=== PATIENT | male | born 1945 | race Caucasian/White ===

== ENCOUNTER 2019-12-09 19:27 | Inpatient (IN) | payer MEDICARE ==
[~2019-12-09] VITALS: Ht 188 cm; Wt 137.3 kg
--- NOTE | 2019-12-09 21:22 | RAD ---
EXAM: CHEST AP ONLY INDICATION: Reason: chest pain / Spl. Instructions: / History: . TECHNIQUE: Single view COMPARISON: Chest x-ray 11/11/2006 FINDINGS: Redemonstrated is right chest multichamber pacemaker. Heart is enlarged. The great vessels appear unremarkable. There is no hilar or mediastinal mass. The lungs are hypoventilatory but show no focal infiltrates.. There is no pleural effusion or pneumothorax. There are no significant osseous abnormalities. IMPRESSION: Stable cardiomegaly with poorer inspiration. No acute focal infiltrates noted. Electronically signed by: Ken Mccarthy MD (12/09/2019 9:20 PM) [facility] [place]
--- NOTE | 2019-12-09 21:31 | PHYS DOC ---
Past Medical History Past Medical History: A-Fib Past Surgical History: Pacemaker, Other Smoking Status: Former Smoker Alcohol Use: None General Adult EDM: Chief Complaint: OTHER COMPLAINTS HPI: HPI: Patient is a 74 year old male who presents to the emergency department with complaints of swelling below both of his eyes and facial erythema that began today. Patient was brought by EMS. EMS reports that the patient also reported weakness and inability to ambulate. Patient denies any fever, numbness, tingling, weakness, or headache. He reports that his face is very red and hot to touch, he denies any drainage or weeping from the erythemic areas.. He denies any itching, new medications, new detergents, or new environmental exposures. Patient denies any vision changes. He reports a history of chronic pain in his left leg, he denies any recent injury. Patient reports his only medical history is atrial fibrillation and a pacemaker. He currently rates his pain 8 out of 10 on the pain scale, he denies any alleviating or exacerbating factors the pain does not radiate anywhere. Review of Systems: Review of Systems: Constitutional: Denies fever or chills. [] Eyes: Denies change in visual acuity; see HPI. [] HENT: Denies nasal congestion or sore throat. [] Respiratory: Denies cough or shortness of breath. [] Cardiovascular: Denies chest pain or edema. [] GI: Denies abdominal pain, nausea, vomiting, or diarrhea. [] Musculoskeletal: Denies back pain or joint pain. [] Integument: See HPI Neurologic: Denies headache, focal weakness or sensory changes. [] Lymphatic: Denies swollen glands. [] Psychiatric: Denies depression or anxiety. [] Heart Score: Risk Factors: Risk Factors: DM, Current or recent (<one month) smoker, HTN, HLP, family history of CAD, obesity. Risk Scores: Score 0 - 3: 2.5% MACE over next 6 weeks - Discharge Home Score 4 - 6: 20.3% MACE over next 6 weeks - Admit for Clinical Observation Score 7 - 10: 72.7% MACE over next 6 weeks - Early Invasive Strategies Allergies: Allergies: Allergies Coded Allergies Type Severity Reaction Last Updated Verified No Known Drug Allergies 12/09/19 No Physical Exam: PE: Constitutional: Well developed, well nourished, no acute distress, non-toxic appearance. [] HENT: Normocephalic, atraumatic, bilateral external ears normal, nose normal, bilateral maxillary sinus TTP [] Eyes: PERRLA, EOMI, conjunctiva normal, no discharge. [] Neck: Normal range of motion, no tenderness, supple, no stridor. [] Cardiovascular:Heart rate regularly irregular ,no murmur [] Lungs & Thorax: Bilateral breath sounds clear to auscultation, Respirations even and unlabored, no retractions, no respiratory distress [] Skin: Warm, dry; swelling present below both eyes with erythema and warmth below the right eye concerning for cellulitis vs sinusitis Back: No tenderness Extremities: No cyanosis, ROM intact, no edema. [] Neurologic: Alert and oriented X 3, no focal deficits noted. [] Psychologic: Affect normal, judgement normal, mood normal. [] Current Patient Data: Vital Signs: Vital Signs Date Time Temp Pulse Resp B/P (MAP) Pulse Ox O2 Delivery O2 Flow Rate FiO2 12/09/19 19:27 100.5 113 20 148/76 (100) 92 Room Air 100.5 EKG: EK-atrial fibrillation, rate of 101, no STEMI, read by Dr. Cormier [] Radiology/Procedures: Radiology/Procedures: PROCEDURE: CHEST AP ONLY EXAM: CHEST AP ONLY INDICATION: Reason: chest pain / Spl. Instructions: / History: . TECHNIQUE: Single view COMPARISON: Chest x-ray 11/11/2006 FINDINGS: Redemonstrated is right chest multichamber pacemaker. Heart is enlarged. The great vessels appear unremarkable. There is no hilar or mediastinal mass. The lungs are hypoventilatory but show no focal infiltrates.. There is no pleural effusion or pneumothorax. There are no significant osseous abnormalities. IMPRESSION: Stable cardiomegaly with poorer inspiration. No acute focal infiltrates noted. PROCEDURE: CT MAXILLOFACIAL WO CONTRAST CT scan of the face and orbits without contrast 12/09/2019 CLINICAL HISTORY: Periorbital cellulitis. TECHNIQUE: Unenhanced, contiguous, 0.625 mm axial sections were obtained through the face and orbits. 3 mm reconstructed sagittal, axial and coronal images were obtained. One or more of the following individualized dose reduction techniques were utilized for this study: 1. Automated exposure control. 2. Adjustment of the mA and/or kV according to patient size. 3. Use of iterative reconstruction technique. FINDINGS: The patient appears to be post partial resection of the medial ponce of both maxillary sinuses to include the uncinate processes along with resection of a portion of the ethmoid air cells bilaterally. Severe mucosal thickening is involving left maxillary sinus. Mild to moderate mucosal thickening is seen involving the remaining ethmoid air cells. The remaining paranasal sinuses are clear. No air-fluid level is seen. No facial bone fracture is noted. The orbits are within normal limits. Specifically the globes, extraocular muscles and optic nerve sheath complexes are within normal limits. No abnormal fluid collection is seen to suggest evidence of an abscess. IMPRESSION: Paranasal sinus disease disease as discussed above. No facial or orbital abscess is seen. [] Course & Med Decision Making: Course & Med Decision Making Pertinent Labs and Imaging studies reviewed. (See chart for details) [id number]- Spoke with Dr. Rushing and advised of patient in the ER, will admit for facial cellulitis. I advised Dr. Rushing that blood cultures x2 have been ordered and are pending, lactic acid was 2.1, BNP 4301, CXR normal, CT pending. I will consult infectious disease about antibiotics. Patient's vital signs stable. Patient now afebrile, appears ill, respirations even and unlabored. Patient will be admitted to the med/tele floor. Patient's case and plan of care also discussed with Dr. Cormier who is in agreement with DALTON Means Disclaimer: Clary Disclaimer: This electronic medical record was generated, in whole or in part, using a voice recognition dictation system. Departure Departure Impression: Primary Impression: Facial cellulitis Additional Impressions: Fever Weakness Sepsis Qualified Codes: A41.9 - Sepsis, unspecified organism Disposition: ADMITTED INPATIENT Admitting Physician: Tima Rushing Condition: STABLE Referrals: TIMA RUSHING MD (PCP) Justicifation of Admission Dx: Justifications for Admission: Justification of Admission Dx: Yes Sepsis: Infection RHONDA CASILLAS CONTINUOUS WAVE OPERATOR Dec 09, 2019 21:31
[2019-12-09 22:09] LABS: BASO % 0 % (0-3); EOS % 0 % (0-3); HEMATOCRIT 34.4 % (39.0-53.0); HEMOGLOBIN 10.9 g/dL (13.0-17.5); LYMPH # 0.5 x10^3/uL (1.0-4.8); LYMPH % 8 % (24-48); MEAN CORPUSCULAR HEMOGLOBIN 21 pg (25-35); MEAN CORPUSCULAR HGB CONC 32 g/dL (31-37); MEAN CORPUSCULAR VOLUME 67 fL (79-100); MONO # 0.3 x10^3/uL (0.0-1.1); MONO % 6 % (0-9); NEUT # 4.6 x10^3/uL (1.8-7.7); NEUT % 85 % (31-73); PLATELET COUNT 118 x10^3/uL (140-400); RED BLOOD COUNT 5.16 x10^6/uL (4.30-5.70); RED CELL DISTRIBUTION WIDTH 15.7 % (11.5-14.5); WHITE BLOOD COUNT 5.4 x10^3/uL (4.0-11.0)
[2019-12-09 22:10] LABS: BILIRUBIN,URINE NEGATIVE (NEG); CLARITY,URINE CLEAR; COLOR,URINE YELLOW; NITRITE,URINE NEGATIVE (NEG); PROTEIN,URINE NEGATIVE (NEG-TRACE)
[2019-12-09 22:17] LABS: CALCIUM 8.4 mg/dL (8.5-10.1); CREATININE 1.1 mg/dL (0.7-1.3); GFR 65.3; POTASSIUM 3.9 mmol/L (3.5-5.1)
[2019-12-09 22:21] LABS: PROTHROMBIN TIME PATIENT 35.6 SEC (11.7-14.0)
[2019-12-09 22:22] LABS: SQUAMOUS EPITHELIAL CELL,UR OCC /LPF
[2019-12-09 22:23] LABS: ALBUMIN 3.5 g/dL (3.4-5.0); ALBUMIN/GLOBULIN RATIO 1.2 (1.0-1.7); BACTERIA,URINE 0 /HPF (0-FEW); MAGNESIUM 1.9 mg/dL (1.8-2.4); TOTAL BILIRUBIN 2.3 mg/dL (0.2-1.0); TOTAL PROTEIN 6.4 g/dL (6.4-8.2)
[2019-12-09] MEDS ORDERED: ACETAMINOPHEN 500 MG TABLET PO ONE (22:45)
--- NOTE | 2019-12-09 23:23 | RAD ---
CT scan of the face and orbits without contrast 12/09/2019 CLINICAL HISTORY: Periorbital cellulitis. TECHNIQUE: Unenhanced, contiguous, 0.625 mm axial sections were obtained through the face and orbits. 3 mm reconstructed sagittal, axial and coronal images were obtained. One or more of the following individualized dose reduction techniques were utilized for this study: 1. Automated exposure control. 2. Adjustment of the mA and/or kV according to patient size. 3. Use of iterative reconstruction technique. FINDINGS: The patient appears to be post partial resection of the medial ponce of both maxillary sinuses to include the uncinate processes along with resection of a portion of the ethmoid air cells bilaterally. Severe mucosal thickening is involving left maxillary sinus. Mild to moderate mucosal thickening is seen involving the remaining ethmoid air cells. The remaining paranasal sinuses are clear. No air-fluid level is seen. No facial bone fracture is noted. The orbits are within normal limits. Specifically the globes, extraocular muscles and optic nerve sheath complexes are within normal limits. No abnormal fluid collection is seen to suggest evidence of an abscess. IMPRESSION: Paranasal sinus disease disease as discussed above. No facial or orbital abscess is seen. Electronically signed by: Benji Carlton MD (12/09/2019 11:20 PM) [id number]
[2019-12-09 23:25] LABS: HYPOCHROMIA MOD; MICROCYTOSIS MARKED; PLT ESTIMATE DECREASED (ADEQUATE); POLYCHROMASIA SLIGHT
[2019-12-09 23:26] LABS: TEAR DROP CELLS OCC
[2019-12-09] MEDS ORDERED: VANCOMYCIN 2 GM in IV NORMAL SALINE 500ML BAG 500 ML IV ONE (23:30)
[2019-12-09] MEDS ORDERED: IV NORMAL SALINE 500ML BAG 500 ML IV ONE (23:30)
[2019-12-10] VITALS (7 sets, daily range): BP systolic 95–123; BP diastolic 41–58
[2019-12-10] MEDS ORDERED: IV NORMAL SALINE 1000ML BAG 1,000 ML IV SCH (00:15)
[2019-12-10] MEDS: VANCOMYCIN PER PHARMACY MC PRN ×2 (02:10→02:14)
--- NOTE | 2019-12-10 02:14 | NUR ---
Pharmacy Vancomycin Dosing Note S:Consulted to monitor and dose vancomycin started 12/10/19. O:IRON CANNON is a 74 year old M with Cellulitis Sepsis . Height: 6 feet, 2 inches Weight: 136.3 kg [place] Body Weight: 82.20 Adjusted Body Weight: 103.72 Dosing Weight: Actual Other Antibiotics: LABS: Last BUN: 15 Last Creatinine: 1.1 Creatinine Clearance: 85 mL/min Last WBC: 5.4 Last Procalcitonin: Tmax (past 24 hours): Microbiology: I/O: Drug Levels: Last level: on at Last dose given at Vancomycin Dosing: Loading Dose: 2000 mg x1 12/10/19 0100 Dosing Weight: Actual Target Trough: 10-20 A: Based on: Actual Wt and CrCl P: 1. 12/10/19 1300 Vancomycin 2000 mg IV q12h 2. Follow up Trough level on 12/11/19 at 1230 3. Pharmacy will continue to monitor, follow and adjust therapy as needed. TEJAL ARANA RPH, 12/10/19214 Signed: 12/10/19 at 214 by TEJAL ARANA RPH PHA
[2019-12-10] MEDS ORDERED: WARF4TAB64 PO (02:33)
[2019-12-10] MEDS ORDERED: FINA5TAB4 PO (02:33)
[2019-12-10] MEDS ORDERED: METO100T7 PO (02:33)
[2019-12-10] MEDS ORDERED: DOXA2TAB2 PO (02:33)
[2019-12-10] MEDS ORDERED: DIGO125T3 PO (02:33)
[2019-12-10] MEDS ORDERED: GARL10002 PO (02:36)
[2019-12-10] MEDS ORDERED: UBID200C7 PO (02:36)
[2019-12-10] MEDS ORDERED: OMEG1CAP38 PO (02:36)
--- NOTE | 2019-12-10 09:04 | PDOC ---
Infectious Disease Note Vital Sign Vital Signs Vital Signs Date Time Temp Pulse Resp B/P (MAP) Pulse Ox O2 Delivery O2 Flow Rate FiO2 12/10/19 07:00 107/56 (73) 12/10/19 07:00 97.5 87 18 97 Nasal Cannula 2.0 97.5 Labs Lab Laboratory Tests Test 12/09/19 21:35 12/10/19 01:30 White Blood Count 5.4 x10^3/uL (4.0-11.0) Red Blood Count 5.16 x10^6/uL (4.30-5.70) Hemoglobin 10.9 g/dL (13.0-17.5) Hematocrit 34.4 % (39.0-53.0) Mean Corpuscular Volume 67 fL (79-100) Mean Corpuscular Hemoglobin 21 pg (25-35) Mean Corpuscular Hemoglobin Concent 32 g/dL (31-37) Red Cell Distribution Width 15.7 % (11.5-14.5) Platelet Count 118 x10^3/uL (140-400) Neutrophils (%) (Auto) 85 % (31-73) Lymphocytes (%) (Auto) 8 % (24-48) Monocytes (%) (Auto) 6 % (0-9) Eosinophils (%) (Auto) 0 % (0-3) Basophils (%) (Auto) 0 % (0-3) Neutrophils # (Auto) 4.6 x10^3/uL (1.8-7.7) Lymphocytes # (Auto) 0.5 x10^3/uL (1.0-4.8) Monocytes # (Auto) 0.3 x10^3/uL (0.0-1.1) Eosinophils # (Auto) 0.0 x10^3/uL (0.0-0.7) Basophils # (Auto) 0.0 x10^3/uL (0.0-0.2) Platelet Estimate Decreased (ADEQUATE) Giant Platelets Occ Polychromasia Slight Hypochromasia Mod Microcytosis Marked Tear Drop Cells Occ Prothrombin Time 35.6 SEC (11.7-14.0) Prothromb Time International Ratio 3.5 (0.8-1.1) Activated Partial Thromboplast Time 62 SEC (24-38) Urine Collection Type Unknown Urine Color Yellow Urine Clarity Clear Urine pH 7.0 (<5.0-8.0) Urine Specific [place] 1.015 (1.000-1.030) Urine Protein Negative mg/dL (NEG-TRACE) Urine Glucose (UA) Negative mg/dL (NEG) Urine Ketones (Stick) Negative mg/dL (NEG) Urine Blood Negative (NEG) Urine Nitrite Negative (NEG) Urine Bilirubin Negative (NEG) Urine Urobilinogen Dipstick 1.0 mg/dL (0.2 mg/dL) Urine Leukocyte Esterase Small (NEG) Urine RBC 3-5 /HPF (0-2) Urine WBC 11-20 /HPF (0-4) Urine Squamous Epithelial Cells Occ /LPF Urine Bacteria 0 /HPF (0-FEW) Urine Mucus Marked /LPF Sodium Level 138 mmol/L (136-145) Potassium Level 3.9 mmol/L (3.5-5.1) Chloride Level 105 mmol/L (98-107) Carbon Dioxide Level 29 mmol/L (21-32) Anion Gap 4 (6-14) Blood Urea Nitrogen 15 mg/dL (8-26) Creatinine 1.1 mg/dL (0.7-1.3) Estimated GFR (Cockcroft-Gault) 65.3 BUN/Creatinine Ratio 14 (6-20) Glucose Level 134 mg/dL (70-99) Lactic Acid Level 2.1 mmol/L (0.4-2.0) 1.7 mmol/L (0.4-2.0) Calcium Level 8.4 mg/dL (8.5-10.1) Magnesium Level 1.9 mg/dL (1.8-2.4) Total Bilirubin 2.3 mg/dL (0.2-1.0) Aspartate Amino Transf (AST/SGOT) 18 U/L (15-37) Alanine Aminotransferase (ALT/SGPT) 15 U/L (16-63) Alkaline Phosphatase 70 U/L (46-116) Creatine Kinase 100 U/L (39-308) Creatine Kinase MB (Mass) 0.9 ng/mL (0.0-3.6) Creatine Kinase MB Relative Index 0.9 % (0-4) Troponin I Quantitative < 0.017 ng/mL (0.000-0.055) QF-Hrn-[id number]-Type Natriuretic Peptide 4301 pg/mL (0-449) Total Protein 6.4 g/dL (6.4-8.2) Albumin 3.5 g/dL (3.4-5.0) Albumin/Globulin Ratio 1.2 (1.0-1.7) Lipase 96 U/L (73-393) Micro CT HEAD IMPRESSION: Paranasal sinus disease disease as discussed above. No facial or orbital abscess is seen. Objective Assessment Fever Facial Cellulitis Lactic acidosis - better Thrombocytopenia Afib Elevated T bili Plan Plan of Care D/c Vanc and dose po Zyvox Dose Rocephin F/u lab and cults T Bili per primary Thank you # [phone] MARYANN HITCHCOCK MD Dec 10, 2019 09:04
--- NOTE | 2019-12-10 09:31 | EKG ---
[facility] [address] [place] [address] Test Date: 2019-12-09 Test Time: 20:11:51 Pat Name: IRON CANNON Department: Room: Gender: M Residential Program Director: : 1945 Requested By: RHONDA CASILLAS Order Number: [id number] Reading MD: Measurements Intervals [place] Rate: 101 P: [place]: QRS: 9 QRSD: 88 T: -5 QT: 294 QTc: 382 Interpretive Statements IRREGULAR RHYTHM, NO P-WAVE FOUND NO SPECIFIC ECG ABNORMALITIES RI6.02 No previous ECG available for comparison
[2019-12-10] MEDS ORDERED: FINASTERIDE 5 MG TABLET. PO SCH (10:00)
[2019-12-10] MEDS ORDERED: METOPROLOL TART IMMED RELEASE 50 MG TABLET. PO SCH (10:00)
[2019-12-10] MEDS ORDERED: METOPROLOL TART IMMED RELEASE 25 MG TABLET. PO SCH (10:00)
[2019-12-10] MEDS ORDERED: DIGOXIN 125 MCG TABLET. PO SCH (10:00)
--- NOTE | 2019-12-10 10:02 | PDOC ---
Provider Note Provider Note history and physical dictated # [id number] Justicifation of Admission Dx: Justifications for Admission: Justification of Admission Dx: Yes Sepsis: Infection SANDRA GARDINER MD Dec 10, 2019 10:02
[2019-12-10] MEDS: OMEGA-3 FATTY ACIDS/FISH OIL 1,000 MG CAPSULE. PO SCH (10:17)
[2019-12-10] MEDS: cefTRIAXone IV Push 2 GM VIAL. IVP SCH (10:17)
[2019-12-10] MEDS: LINEZOLID 600 MG TABLET PO SCH ×2 (10:17→20:27)
[2019-12-10] MEDS: FINASTERIDE 5 MG TABLET. PO SCH (10:18)
[2019-12-10] MEDS: DIGOXIN 125 MCG TABLET. PO SCH (10:18)
[2019-12-10] MEDS: DOXAZOSIN MESYLATE 1 MG TABLET. PO SCH (10:18)
[2019-12-10 10:19] LABS: PROTHROMBIN TIME PATIENT 34.8 SEC (11.7-14.0)
--- NOTE | 2019-12-10 10:59 | PDOC2 ---
MAINE THOMPSON MOLD MAINTENANCE TECHNICIAN 12/10/19 1059: CARDIAC CONSULT DATE OF CONSULT Date of Consult DATE: 12/10/19 TIME: 10:48 REASON FOR CONSULT Reason for Consult: AFIB, elevated BNP REFERRING PHYSICIAN Referring Physician: Сергей SOURCE Source: Chart review, Patient HISTORY OF PRESENT ILLNESS HISTORY OF PRESENT ILLNESS This is a pleasant 74 yo male admitted for complains of facial swelling. Reports that in the last 2 days he has not been feeling well and then his face started to become more swollen and red to a point that he could open his eyes well due to the swelling. No fever or chills at that time but was noted with dry heaving. No odynophagia. Denies any falls or any injury. Denies any teeth problem but significant for sinus surgery in the past. He does have KATE and uses facial mask for CPAP and has not been cleaning it. Denies any chest pain or SOA. He has AFIB and this is chronic and sees Dr. 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 Upon admission his HR was fast but was associated with fever. He takes coumadin, digoxin and metoprolol. Denies any CAD, angioedema or VTE. No hx of CVA PAST MEDICAL HISTORY Cardiovascular: AFIB, HTN, Other (SSS) Pulmonary: COPD, Other (KATE) CENTRAL NERVOUS SYSTEM: Other (No pertinent history) GI: GERD Heme/Onc: Anemia NOS, Other (chronic coumadin) Hepatobiliary: No pertinent hx Psych: No pertinent hx Musculoskeletal: Osteoarthritis Infectious disease: No pertinent hx ENT: Other (cataract) Renal/: Benign prostatic enlarg. Endocrine: No pertinent hx Dermatology: No pertinent hx PAST SURGICAL HISTORY Past Surgical History: Pacemaker, Cataract Removal FAMILY HISTORY Family History: Stroke SOCIAL HISTORY Smoke: Quit ALCOHOL: none Drugs: None Lives: with Family CURRENT MEDICATIONS CURRENT MEDICATIONS Current Medications Medications (Trade) Dose Ordered Sig/Jorje Route PRN Reason Start Time Stop Time Status Last Admin Dose Admin Acetaminophen (Tylenol) 1,000 mg 1X ONCE PO 12/09/19 22:45 12/09/19 22:46 DC 12/09/19 23:06 Vancomycin HCl (Vanco Per Pharmacy) 1 each PRN DAILY PRN MC SEE COMMENTS 12/09/19 23:30 12/10/19 08:56 DC 12/10/19 02:14 Sodium Chloride 500 ml @ 500 mls/hr 1X ONCE IV 12/09/19 23:30 12/10/19 00:29 DC 12/09/19 23:30 Vancomycin HCl 2 gm/Sodium Chloride 500 ml @ 250 mls/hr 1X ONCE IV 12/09/19 23:30 12/10/19 01:29 DC 12/10/19 01:05 Sodium Chloride 1,000 ml @ 100 mls/hr Q10H IV 12/10/19 00:15 12/10/19 09:46 DC 12/10/19 06:37 Linezolid (Zyvox) 600 mg BID PO 12/10/19 09:00 12/10/19 10:17 Ceftriaxone Sodium (Rocephin) 2 gm Q24H IVP 12/10/19 10:00 12/10/19 10:17 Digoxin (Lanoxin) 125 mcg DAILY PO 12/10/19 10:00 12/10/19 10:18 Doxazosin Mesylate (Cardura) 2 mg DAILY PO 12/10/19 10:00 12/10/19 10:18 Finasteride (Proscar) 5 mg DAILY PO 12/10/19 10:00 12/10/19 10:18 Fish Oil (Fish Oil) 1,000 mg DAILY PO 12/10/19 10:00 12/10/19 10:17 Metoprolol Tartrate (Lopressor) 100 mg BID PO 12/10/19 10:00 12/10/19 10:18 ALLERGIES ALLERGIES: Coded Allergies: No Known Drug Allergies (Unverified , 12/09/19) ROS Review of System 14 point ROS evaluated with pertinent positives noted per HPI PHYSICAL EXAM General: Alert, Oriented X3, Cooperative, No acute distress HEENT: Atraumatic, Other (facial cellulitis) Lungs: Other (diminished bases) Heart: Other (AFIB ) Abdomen: Soft, Other (obese) Extremities: No cyanosis, No edema Skin: No breakdown, Other (facial erythema) Neuro: Normal speech, Sensation intact Psych/Mental Status: Mental status NL, Mood NL MUSCULOSKELETAL: Osteoarthritic changes both hands VITALS/I&O VITALS/I&O: Vital Signs Date Time Temp Pulse Resp B/P (MAP) Pulse Ox O2 Delivery O2 Flow Rate FiO2 12/10/19 10:18 87 107/56 12/10/19 08:00 Nasal Cannula 2.0 12/10/19 07:00 97.5 18 97 97.5 I & O 12/09/19 12/09/19 12/10/19 15:00 23:00 07:00 Intake Total 850 ml Output Total 200 ml Balance 650 ml LABS Lab: Laboratory Tests Test 12/09/19 21:35 12/10/19 01:30 12/10/19 08:50 White Blood Count 5.4 x10^3/uL (4.0-11.0) Red Blood Count 5.16 x10^6/uL (4.30-5.70) Hemoglobin 10.9 g/dL (13.0-17.5) L Hematocrit 34.4 % (39.0-53.0) L Mean Corpuscular Volume 67 fL (79-100) L Mean Corpuscular Hemoglobin 21 pg (25-35) L Mean Corpuscular Hemoglobin Concent 32 g/dL (31-37) Red Cell Distribution Width 15.7 % (11.5-14.5) H Platelet Count 118 x10^3/uL (140-400) L Neutrophils (%) (Auto) 85 % (31-73) H Lymphocytes (%) (Auto) 8 % (24-48) L Monocytes (%) (Auto) 6 % (0-9) Eosinophils (%) (Auto) 0 % (0-3) Basophils (%) (Auto) 0 % (0-3) Neutrophils # (Auto) 4.6 x10^3/uL (1.8-7.7) Lymphocytes # (Auto) 0.5 x10^3/uL (1.0-4.8) L Monocytes # (Auto) 0.3 x10^3/uL (0.0-1.1) Eosinophils # (Auto) 0.0 x10^3/uL (0.0-0.7) Basophils # (Auto) 0.0 x10^3/uL (0.0-0.2) Platelet Estimate Decreased (ADEQUATE) Giant Platelets Occ Polychromasia Slight Hypochromasia Mod Microcytosis Marked Tear Drop Cells Occ Prothrombin Time 35.6 SEC (11.7-14.0) H 34.8 SEC (11.7-14.0) H Prothrombin Time INR 3.5 (0.8-1.1) H 3.4 (0.8-1.1) H Activated Partial Thromboplast Time 62 SEC (24-38) H Urine Collection Type Unknown Urine Color Yellow Urine Clarity Clear Urine pH 7.0 (<5.0-8.0) Urine Specific [place] 1.015 (1.000-1.030) Urine Protein Negative mg/dL (NEG-TRACE) Urine Glucose (UA) Negative mg/dL (NEG) Urine Ketones (Stick) Negative mg/dL (NEG) Urine Blood Negative (NEG) Urine Nitrite Negative (NEG) Urine Bilirubin Negative (NEG) Urine Urobilinogen Dipstick 1.0 mg/dL (0.2 mg/dL) Urine Leukocyte Esterase Small (NEG) Urine RBC 3-5 /HPF (0-2) Urine WBC 11-20 /HPF (0-4) Urine Squamous Epithelial Cells Occ /LPF Urine Bacteria 0 /HPF (0-FEW) Urine Mucus Marked /LPF Sodium Level 138 mmol/L (136-145) Potassium Level 3.9 mmol/L (3.5-5.1) Chloride Level 105 mmol/L (98-107) Carbon Dioxide Level 29 mmol/L (21-32) Anion Gap 4 (6-14) L Blood Urea Nitrogen 15 mg/dL (8-26) Creatinine 1.1 mg/dL (0.7-1.3) Estimated GFR (Cockcroft-Gault) 65.3 BUN/Creatinine Ratio 14 (6-20) Glucose Level 134 mg/dL (70-99) H Lactic Acid Level 2.1 mmol/L (0.4-2.0) H 1.7 mmol/L (0.4-2.0) 1.3 mmol/L (0.4-2.0) Calcium Level 8.4 mg/dL (8.5-10.1) L Magnesium Level 1.9 mg/dL (1.8-2.4) Total Bilirubin 2.3 mg/dL (0.2-1.0) H Aspartate Amino Transferase (AST) 18 U/L (15-37) Alanine Aminotransferase (ALT) 15 U/L (16-63) L Alkaline Phosphatase 70 U/L (46-116) Creatine Kinase 100 U/L (39-308) Creatine Kinase MB (Mass) 0.9 ng/mL (0.0-3.6) Creatine Kinase MB Relative Index 0.9 % (0-4) Troponin I Quantitative < 0.017 ng/mL (0.000-0.055) IU-Usj-G-Type Natriuretic Peptide 4301 pg/mL (0-449) H Total Protein 6.4 g/dL (6.4-8.2) Albumin 3.5 g/dL (3.4-5.0) Albumin/Globulin Ratio 1.2 (1.0-1.7) Lipase 96 U/L (73-393) Laboratory Tests 12/09/19 21:35 Laboratory Tests 12/09/19 21:35 ASSESSMENT/PLAN ASSESSMENT/PLAN 1. Sepsis/fever/facial cellulitis/possible UTI: ID following Has not been cleaning his CPAP mask 2. Chronic AFIB RVR: chronic vs paroxysms. now rate controlled. likely precipitated by above 3. Elevated pro NT BNP: suspect due to above culprits. No overt CHF 4. HTN: low marginal but controlled 5. Mild microcytic hypochromic anemia and thrombocytopenia 6. Chronic coumadin therapy: INR therapeutic 7. Obesity 8. PPM in situ: dual chamber but only RV lead is operational as A lead is off per pt. 9. 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 Dig level. Will decrease metoprolol dosing as BP is currently marginally low. Metoprolol IV PRN for sustained episodes if BP allows. Follow up with [facility] cardiology GRISEL GUILLEN MD 12/10/19 1617: CARDIAC CONSULT ASSESSMENT/PLAN ASSESSMENT/PLAN Pt. seen and examined. Agree with above ATMOSPHERIC PHYSICIST note Supportive care. Thanks MAINE THOMPSON MOLD MAINTENANCE TECHNICIAN Dec 10, 2019 10:59 GRISEL GUILLEN MD Dec 10, 2019 16:17
--- NOTE | 2019-12-10 11:06 | HP ---
ADMIT DATE: 12/09/2019 LOCATION: The patient is in room 207. HISTORY OF PRESENT ILLNESS: The patient is a 74-year-old white male with history of persistent atrial fibrillation, on Coumadin; obstructive sleep apnea, treated with CPAP; morbid obesity; thalassemia trait with chronic anemia, who has a permanent pacemaker and noted the onset of facial redness and swelling, right side of the face and left side of the face Friday the morning when he woke up. He does wear CPAP at night and has been wearing the same CPAP mask now for a quite some time. He felt that his face was red and warm to touch and there was no itching. He also complains of some sciatic pain this morning involving the left leg. Apparently, he had some problems with mobility and inability to ambulate at home. He had a fever too and chills yesterday. He went to the [facility] Emergency Room where he was noted to have a facial cellulitis. A CAT scan of the maxillofacial bones showed some evidence of chronic sinusitis and the patient was started on IV vancomycin in the Emergency Room and Rocephin, and was switched to Rocephin and Zyvox by the Infectious Disease doctor this morning. I spoke with Dr. Dickens. He is therefore admitted for further evaluation and treatment of his facial cellulitis. ALLERGIES: None. MEDICATIONS: Include digoxin 125 mcg daily, doxazosin 2 mg every day, finasteride 5 mg every day, garlic 1000 mg capsule daily, metoprolol tartrate 100 mg b.i.d., fish oil 1 g daily, coenzyme Q10 200 mg b.i.d., and Coumadin 4.5 mg every day. PAST MEDICAL HISTORY: Significant for bilateral cataract extraction last year. He has a permanent pacemaker, some generator changes in the past. He has thalassemia trait with chronic anemia; morbid obesity; persistent atrial fibrillation, on Coumadin; obstructive sleep apnea, treated with CPAP. SOCIAL HISTORY: He does not drink alcohol nor does he smoke cigarettes. He is . FAMILY HISTORY: Noncontributory. REVIEW OF SYSTEMS: GENERAL: He had fever and chills yesterday. CARDIOVASCULAR: No chest pain. PULMONARY: He has got a chronic cough. GASTROINTESTINAL: No diarrhea. ENDOCRINE: He does not have diabetes mellitus. SKIN: He has got the facial cellulitis. The rest of systems reviewed are negative except as stated in history of present illness. PHYSICAL EXAMINATION: VITAL SIGNS: Temperature is 97.5 degrees, heart rate 87, respiratory rate 18, blood pressure 95/50 and then rechecked at 107/56 in the right arm, oxygen saturation 97% and he is on 2 liters per nasal cannula. His temperature in the Emergency Room was 100.5 degrees. HEENT: Eyes: Gaze is conjugate. He has got some eyelid swelling. Examination of face shows he has got erythema and swelling in both cheeks, worse on the right than the left. The area is warm more on the right than the left. He does have some swelling in his face too, worse on the right than the left. NECK: No cervical lymphadenopathy. HEART: Reveals an S1, S2. There is no S3 or murmur. LUNGS: Clear. ABDOMEN: Obese and soft, nontender. EXTREMITIES: Lower extremities without edema. Pedal pulses are present. NEUROLOGIC: Revealed no focal weakness of the extremities or facial asymmetry. He is able to dorsi and plantarflex both feet, bend his knees and raise his legs up in the air. LABORATORY DATA: Review of his laboratory tests: White count is 5.4, hemoglobin 10.9 with MCV of 67. His RBCs were normal at 5.16, platelet count was 118,000, 85 polys and 8 lymphocytes. He had marked microcytosis. INR was increased at 3.5. His sodium is 138, potassium 3.9, chloride 105, total CO2 of 29, BUN 15, creatinine 1.1, blood sugar 134 last night and magnesium was 1.9, calcium was 8.4. Liver function tests were normal except for a total bilirubin of 2.3. His lactic acid level was 2.1 and then checked again was 1.7. His CPK was 100. Troponin levels less than 0.017. ProBNP was increased at 4301. Lipase was normal at 96, albumin 3.5, bilirubin 2.3. Then, he had a CAT scan of the maxillofacial bones, which showed paranasal sinus disease, no facial or orbital abscess was seen. He had [id number] mucosal thickening involving the ethmoid air cells. He had severe mucosal thickening involving the left maxillary sinus. He had a chest x-ray, which showed stable cardiomegaly with poor inspiration, no lung infiltrates were seen, great vessels were unremarkable. EKG showed atrial fibrillation. ASSESSMENT: 1. Facial cellulitis, perhaps related to his mask from his CPAP. 2. Persistent atrial fibrillation. He is on Coumadin. 3. Coagulopathy. 4. Obstructive sleep apnea, treated with CPAP. 5. Morbid obesity. 6. Thalassemia trait with chronic anemia. 7. Elevated BNP. 8. Sepsis related to the facial cellulitis since he had a fever earlier. 9. Permanent pacemaker. PLAN: At this time is to consult Dr. Dickens who has already seen the patient. Consult Dr. Membreno for Cardiology. Obtain an echocardiogram with elevated BNP and atrial fibrillation. We will get a protime and INR today and I spoke with the nurse if INR is 3 or less he is to start Coumadin 4 mg daily, which is lower than what he takes at home. Check another protime and INR tomorrow. His elevated bilirubin could be related to his thalassemia trait, so we will get a direct bilirubin and total bilirubin tomorrow and check his liver function tests again. Get a CBC and BMP tomorrow. Continue with his home medications. His will bring the BiPAP from home. I can look at that facemask. He may need to have another face mask if it is too tight. We will continue with the IV Rocephin and Zyvox. Consult Dr. Membreno for the atrial fibrillation and elevated BNP. Continue with his home medications. We will check a digoxin level tomorrow. He also had blood cultures done in the Emergency Room as well as a urine culture. He did have a urinalysis done and he did have some pyuria, 11-20 white cells, 3-5 red blood cells noted on the urinalysis. SANDRA GARDINER MD DR: GRICEL/stefano JOB#: [id number] / [id number]
--- NOTE | 2019-12-10 11:16 | NUR ---
SS following for discharge planning. SS reviewed pt chart and discussed with pt RN. Pt is from home with spouse and is currently requiring oxygen. Pt has no home oxygen. ID and Cardiology consulted. ECHO ordered. Pt on IV Rocephin and PO Zyvox. SS will continue to follow for discharge planning.
--- NOTE | 2019-12-10 11:20 | CONS ---
DATE OF CONSULTATION: 12/10/2019 INFECTIOUS DISEASE CONSULTATION LOCATION: The patient's room is 207. REQUESTING PHYSICIAN: Dr. Rushing. REASON FOR CONSULTATION: Facial cellulitis. HISTORY OF PRESENT ILLNESS: The patient is a 74-year-old gentleman with a history of atrial fibrillation and with pacemaker, who has been pretty much quarantined himself at home since the outbreak of the COVID. 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 He did do some little bit of work in the yard, but denies any known exposure to anything. On Friday, he awakened and had some mild erythema and swelling about his eyes. He also had some increased sinus congestion and drainage. Over the course of the day, it worsened and then yesterday when he awakened, he says eyes were almost swollen and shut. His face became more red and hot. It has not affected his vision. He does not hurt to move his eyes. He has not changed any soaps or medications and denies any known exposures. He did start to have increased drainage, some fevers and chills and sweats. He has not had any swallowing problems or wheezing. No shortness of air. No nausea, vomiting or diarrhea. He is a little bit constipated. Denies any dysuria, frequency or urgency. He presented yesterday to [facility] because of weakness. He did have a temperature of 100.5. White count was 5.4; however, neutrophils were 85%. Urinalysis was collected, but not consistent with urinary tract infection. Chest x-ray was without acute process. CT scan of the face showed paranasal sinus disease, no facial or orbital abscess was seen. He was placed on vancomycin. Currently, he is lying in bed, states he is feeling some better. PAST MEDICAL HISTORY: Positive for sinusitis, history of atrial fibrillation, obesity, cataracts. He denies any history of any pneumoniae, no skin infections or UTIs. PAST SURGICAL HISTORY: Positive for sinus surgery x 2, cataract surgery, pacemaker placement x 4. REVIEW OF SYSTEMS: Otherwise negative except for mentioned above. ALLERGIES: No known drug allergies. SOCIAL HISTORY: He is , is a former smoker, quit in 1993. He has no pets. FAMILY HISTORY: Mother had breast cancer. CURRENT MEDICATIONS: Include vancomycin and p.r.n. meds. PHYSICAL EXAMINATION: VITAL SIGNS: T-max 100.5, currently 97.5, pulse 87, respirations 18, blood pressure 107/53, satting 97% on 2 liters. CONSTITUTIONAL: He is lying in bed. He is cooperative. He is in no acute distress. HEENT: Pupils are equal and reactive. He has normal conjunctivae. He does have some facial swelling above his eyes and around his eyes and over the bridge of his nose. He has some mild erythema associated with it and some mild tenderness to palpation. Oral cavity: Oropharynx has dentures, otherwise clear. NECK: Supple, no JVD. LUNGS: Clear to auscultation. HEART: S1, S2. Pacemaker scars without complications. ABDOMEN: Obese, soft, nontender, nondistended with positive bowel sounds. EXTREMITIES: No clubbing, cyanosis or gross edema. SKIN: Warm to touch without generalized rash. NEUROLOGIC: He is nonfocal. PSYCHIATRIC: Affect is appropriate. LABORATORY VALUES: White count of 5.4, hemoglobin 10.9, platelets of 118, neutrophils are 85, lymphs are 8; creatinine was 1.1, glucose of 134; lactic acid initially 2.1, improved to 1.7; total bilirubin was 2.3. IMPRESSION: 1. Fever. 2. Facial cellulitis. 3. Lactic acidosis, better. 4. Thrombocytopenia. 5. Atrial fibrillation. 6. Elevated total bilirubin. RECOMMENDATIONS: We will discontinue the vancomycin and dose p.o. Zyvox. We will also dose Rocephin. Follow up on labs and cultures. Total bilirubin per primary. Thank you to participate in the patient's care. Should you have any questions, please do not hesitate to contact me. MARYANN HITCHCOCK MD DR: INÉS/stefano JOB#: [id number] / [id number]
[2019-12-10 12:06] LABS: DIG 0.3 ng/mL (0.9-2.0)
[2019-12-10] MEDS ORDERED: VANCOMYCIN 2 GM in IV NORMAL SALINE 500ML BAG 500 ML IV SCH (13:00)
[2019-12-10] MEDS ORDERED: METOPROLOL TARTRATE 5 MG/5 ML VIAL. IVP PRN (14:15)
--- NOTE | 2019-12-10 16:50 | CARD ---
MR#: [id number] Date of Study: 12/10/2019 Ordering Physician: SANDRA GARDINER, Referring Physician: SANDRA GARDINER Tech: Melita Banerjee RDCS APPROVED REPORT EXAM: Two-dimensional and M-mode echocardiogram with Doppler and color Doppler. Other Information Quality : Good Rhythm : Atrial Fibrillation INDICATION Atrial Fibrillation Surgery/Intervention Pacemaker: Date: 1996 2D DIMENSIONS RVDd3.9 (2.9-3.5cm)Left Atrium(2D)5.5 (1.6-4.0cm) IVSd1.0 (0.7-1.1cm)Aortic Root(2D)3.3 (2.0-3.7cm) LVDd5.2 (3.9-5.9cm)LVOT Diameter2.4 (1.8-2.4cm) PWd1.1 (0.7-1.1cm)LVDs3.3 (2.5-4.0cm) FS (%) 36.1 %SV85.0 ml LVEF(%)60.0 (>50%) Aortic Valve AoV Peak Murali.161.6cm/sAoV VTI26.9cm AO Peak GR.10.4mmHgLVOT VTI 12.34cm AO Mean GR.6mmHgAVA (VTI)2.00cm2 Mitral Valve MV E Spwrkmbe39.3cm/sMV DECEL [id number] Tricuspid Valve TR P. [id number]/sRAP [id number] TR Peak Gr.76whCiAIZB26jiUj LEFT VENTRICLE The left ventricle is normal size. There is normal left ventricular wall thickness. The left ventricu lar systolic function is normal and the ejection fraction is within normal range. The Ejection Fracti on is 55-60%. There is normal LV segmental wall motion. RIGHT VENTRICLE The right ventricle is normal size. The right ventricular systolic function is normal. There is a pro bable pacemaker lead in the right ventricle. ATRIA The left atrium is mildly dilated. The right atrium is mildly dilated. A pacemaker is seen in the rig ht atrium consistent with history. The interatrial septum is intact with no evidence for an atrial se ptal defect or patent foramen ovale as noted on 2-D or Doppler imaging. AORTIC VALVE The aortic valve is calcified but opens well. Doppler and Color Flow revealed no significant aortic r egurgitation. There is no significant aortic valvular stenosis. MITRAL VALVE The mitral valve is calcified but opens well. Mitral annular calcification is mild. There is no evide nce of mitral valve prolapse. There is no mitral valve stenosis. Doppler and Color-flow revealed trac e mitral regurgitation. TRICUSPID VALVE The tricuspid valve is normal in structure and function. Doppler and Color Flow revealed trace tricus pid regurgitation. The PA pressure was estimated at 33 mmHg. There is no tricuspid valve stenosis. PULMONIC VALVE The pulmonic valve is not well visualized. Doppler and Color Flow revealed no pulmonic valvular regur gitation. There is no pulmonic valvular stenosis. GREAT VESSELS The aortic root is normal in size. The ascending aorta is moderately dilated at 4.1 cm. The IVC is no rmal in size and collapses >50% with inspiration. PERICARDIAL EFFUSION There is no evidence of significant pericardial effusion. Critical Notification Critical Value: No <Conclusion> The left ventricle is normal size. The left ventricular systolic function is normal and the ejection fraction is within normal range. The Ejection Fraction is 55-60%. There are probable pacemaker leads in the right ventricle and atrium. Doppler and Color Flow revealed no significant aortic regurgitation. There is no significant aortic valvular stenosis. Doppler and Color-flow revealed trace mitral regurgitation. Doppler and Color Flow revealed trace tricuspid regurgitation. The PA pressure was estimated at 33 mmHg. The ascending aorta is moderately dilated at 4.1 cm. Signed by : Stephen Taylor MD Electronically Approved : 12/10/2019 16:49:53
[2019-12-10] MEDS: LACTOBACILLUS RHAMNOSUS GG 1 CAPSULE. PO SCH (20:26)
[2019-12-10] MEDS: ACETAMINOPHEN 325 MG TABLET. PO PRN (20:26)
[2019-12-10] MEDS: METOPROLOL TART IMMED RELEASE 50 MG TABLET. PO SCH (20:26)
[2019-12-10] MEDS ORDERED: NON FORMULARY ITEM (Ubidecarenone (Co Q-10) 200 MG) PO SCH (21:00)
[2019-12-10] MEDS ORDERED: NON FORMULARY ITEM (Garlic 1,000 MG) PO SCH (21:00)
[2019-12-10] MEDS ORDERED: METOPROLOL TARTRATE 150 MG PO SCH (21:00)
[2019-12-11 03:45] VITALS: BP 114/56
[2019-12-11 04:07] LABS: BASO % 0 % (0-3); EOS # 0.1 x10^3/uL (0.0-0.7); EOS % 2 % (0-3); HEMATOCRIT 31.1 % (39.0-53.0); LYMPH # 0.6 x10^3/uL (1.0-4.8); LYMPH % 17 % (24-48); MEAN CORPUSCULAR HEMOGLOBIN 21 pg (25-35); MEAN CORPUSCULAR HGB CONC 32 g/dL (31-37); MEAN CORPUSCULAR VOLUME 66 fL (79-100); MONO # 0.4 x10^3/uL (0.0-1.1); MONO % 10 % (0-9); NEUT # 2.6 x10^3/uL (1.8-7.7); NEUT % 71 % (31-73); PLATELET COUNT 90 x10^3/uL (140-400); RED BLOOD COUNT 4.69 x10^6/uL (4.30-5.70); RED CELL DISTRIBUTION WIDTH 15.7 % (11.5-14.5); WHITE BLOOD COUNT 3.7 x10^3/uL (4.0-11.0)
[2019-12-11 04:19] LABS: GFR 72.8
[2019-12-11 05:00] LABS: DIRECT BILIRUBIN 0.4 mg/dL (0.0-0.2); TOTAL BILIRUBIN 1.6 mg/dL (0.2-1.0); TOTAL PROTEIN 5.4 g/dL (6.4-8.2)
[2019-12-11 05:45] LABS: DIG 0.3 ng/mL (0.9-2.0)
[2019-12-11 07:00] VITALS: BP 110/64
--- NOTE | 2019-12-11 07:36 | PDOC ---
Infectious Disease Note Subjective Subjective Better with less swelling No F/c/N/v/D/SOA. Had a big sweat last pm Vital Sign Vital Signs Vital Signs Date Time Temp Pulse Resp B/P (MAP) Pulse Ox O2 Delivery O2 Flow Rate FiO2 12/11/19 03:45 98.0 71 22 114/56 (75) 97 Nasal Cannula 3.0 98.0 Physical Exam PHYSICAL EXAM CONSTITUTIONAL: He is lying in bed. He is cooperative. He is in no acute distress. HEENT: Pupils are equal and reactive. He has normal conjunctivae. He does have improved facial swelling above his eyes and around his eyes and over the bridge of his nose. He has some mild erythema associated with it and some mild tenderness to palpation - better. Oral cavity: Oropharynx has dentures, otherwise clear. NECK: Supple, no JVD. LUNGS: Clear to auscultation. HEART: S1, S2. Pacemaker scars without complications. ABDOMEN: Obese, soft, nontender, nondistended with positive bowel sounds. EXTREMITIES: No clubbing, cyanosis or gross edema. SKIN: Warm to touch without generalized rash. NEUROLOGIC: He is nonfocal. PSYCHIATRIC: Affect is appropriate. Labs Lab Laboratory Tests Test 12/10/19 08:50 12/11/19 04:00 Prothrombin Time 34.8 SEC (11.7-14.0) 23.0 SEC (11.7-14.0) Prothromb Time International Ratio 3.4 (0.8-1.1) 2.1 (0.8-1.1) Lactic Acid Level 1.3 mmol/L (0.4-2.0) Thyroid Stimulating Hormone (TSH) 1.137 uIU/mL (0.358-3.74) Digoxin Level 0.3 ng/mL (0.9-2.0) 0.3 ng/mL (0.9-2.0) Digoxin Last Dose Date 12/10/19 12/10/19 Digoxin Last Dose Time 1000 1000 White Blood Count 3.7 x10^3/uL (4.0-11.0) Red Blood Count 4.69 x10^6/uL (4.30-5.70) Hemoglobin 10.0 g/dL (13.0-17.5) Hematocrit 31.1 % (39.0-53.0) Mean Corpuscular Volume 66 fL (79-100) Mean Corpuscular Hemoglobin 21 pg (25-35) Mean Corpuscular Hemoglobin Concent 32 g/dL (31-37) Red Cell Distribution Width 15.7 % (11.5-14.5) Platelet Count 90 x10^3/uL (140-400) Neutrophils (%) (Auto) 71 % (31-73) Lymphocytes (%) (Auto) 17 % (24-48) Monocytes (%) (Auto) 10 % (0-9) Eosinophils (%) (Auto) 2 % (0-3) Basophils (%) (Auto) 0 % (0-3) Neutrophils # (Auto) 2.6 x10^3/uL (1.8-7.7) Lymphocytes # (Auto) 0.6 x10^3/uL (1.0-4.8) Monocytes # (Auto) 0.4 x10^3/uL (0.0-1.1) Eosinophils # (Auto) 0.1 x10^3/uL (0.0-0.7) Basophils # (Auto) 0.0 x10^3/uL (0.0-0.2) Creatinine 1.0 mg/dL (0.7-1.3) Estimated GFR (Cockcroft-Gault) 72.8 Total Bilirubin 1.6 mg/dL (0.2-1.0) Direct Bilirubin 0.4 mg/dL (0.0-0.2) Aspartate Amino Transf (AST/SGOT) 27 U/L (15-37) Alanine Aminotransferase (ALT/SGPT) 16 U/L (16-63) Alkaline Phosphatase 64 U/L (46-116) Total Protein 5.4 g/dL (6.4-8.2) Albumin 3.0 g/dL (3.4-5.0) Micro CT HEAD IMPRESSION: Paranasal sinus disease disease as discussed above. No facial or orbital abscess is seen. Objective Assessment Fever -better Facial Cellulitis - better Leukopenia - has Thalassemia Lactic acidosis - better Thrombocytopenia Afib Elevated T bili Plan Plan of Care Cont po Zyvox/Rocephin F/u lab and cults MARYANN HITCHCOCK MD Dec 11, 2019 07:36
[2019-12-11] MEDS: DIGOXIN 125 MCG TABLET. PO SCH (08:11)
[2019-12-11] MEDS: FINASTERIDE 5 MG TABLET. PO SCH (08:11)
[2019-12-11] MEDS: LINEZOLID 600 MG TABLET PO SCH ×2 (08:11→20:51)
[2019-12-11] MEDS: LACTOBACILLUS RHAMNOSUS GG 1 CAPSULE. PO SCH ×2 (08:11→20:51)
[2019-12-11] MEDS: OMEGA-3 FATTY ACIDS/FISH OIL 1,000 MG CAPSULE. PO SCH (08:11)
[2019-12-11] MEDS: DOXAZOSIN MESYLATE 1 MG TABLET. PO SCH (08:12)
[2019-12-11] MEDS: METOPROLOL TART IMMED RELEASE 50 MG TABLET. PO SCH ×2 (08:12→20:51)
[2019-12-11] MEDS ORDERED: NORMAL SALINE IV ONE (09:00)
[2019-12-11] MEDS ORDERED: DAPTOMYCIN IV ONE (09:00)
[2019-12-11] MEDS ORDERED: DOXAZOSIN MESYLATE PO SCH (09:00)
[2019-12-11] MEDS: cefTRIAXone IV Push 2 GM VIAL. IVP SCH (09:46)
--- NOTE | 2019-12-11 11:08 | PDOC ---
PROGRESS NOTES Date of Service: DATE: 12/11/19 TIME: 11:08 Subjective Subjective Feeling better with improvement in erythema and swelling in face, denied any chest pain or palpitations Objective Objective Vital Signs Date Time Temp Pulse Resp B/P (MAP) Pulse Ox O2 Delivery O2 Flow Rate FiO2 12/11/19 08:12 77 110/64 12/11/19 08:00 Room Air 2.0 12/11/19 07:00 97.4 28 97 97.4 Intake and Output 12/11/19 07:00 Intake Total 1250 ml Output Total 1550 ml Balance -300 ml Intake Oral 1250 ml Output Urine Total 1550 ml Physical Exam Abdomen: Soft, Other (obese) Heart: Other (AFIB ) Extremities: No cyanosis, No edema General: Alert, Oriented X3, Cooperative, No acute distress HEENT: Atraumatic, Other (facial cellulitis) Lungs: Other (diminished bases) MUSCULOSKELETAL: Osteoarthritic changes both hands Neuro: Normal speech, Sensation intact Psych/Mental Status: Mental status NL, Mood NL Skin: No breakdown, Other (facial erythema) Assessment Assessment 1. Sepsis/fever/facial cellulitis/possible UTI: Continue antibiotics per ID team. 2. Chronic AFIB RVR, rate better controlled. Continue current medications including Coumadin for stroke prophylaxis. 3. Elevated pro NT BNP: suspect due to above culprits. No overt CHF 4. HTN: controlled 5. Mild microcytic hypochromic anemia and thrombocytopenia 6. Chronic coumadin therapy: INR therapeutic 7. Hypomagnesemia, replace IV 8. SSS/tachybradycardia syndrome s/p PPM in situ: dual chamber but only RV lead is operational as A lead is off per pt. 9. KATE: CPAP compliant Plan Plan of Care Problems Medical Problems: (1) Sepsis Status: Acute Comment Review of Relevant I have reviewed the following items chucky (where applicable) has been applied. Labs Laboratory Tests Test 12/11/19 04:00 White Blood Count 3.7 x10^3/uL (4.0-11.0) Red Blood Count 4.69 x10^6/uL (4.30-5.70) Hemoglobin 10.0 g/dL (13.0-17.5) Hematocrit 31.1 % (39.0-53.0) Mean Corpuscular Volume 66 fL (79-100) Mean Corpuscular Hemoglobin 21 pg (25-35) Mean Corpuscular Hemoglobin Concent 32 g/dL (31-37) Red Cell Distribution Width 15.7 % (11.5-14.5) Platelet Count 90 x10^3/uL (140-400) Neutrophils (%) (Auto) 71 % (31-73) Lymphocytes (%) (Auto) 17 % (24-48) Monocytes (%) (Auto) 10 % (0-9) Eosinophils (%) (Auto) 2 % (0-3) Basophils (%) (Auto) 0 % (0-3) Neutrophils # (Auto) 2.6 x10^3/uL (1.8-7.7) Lymphocytes # (Auto) 0.6 x10^3/uL (1.0-4.8) Monocytes # (Auto) 0.4 x10^3/uL (0.0-1.1) Eosinophils # (Auto) 0.1 x10^3/uL (0.0-0.7) Basophils # (Auto) 0.0 x10^3/uL (0.0-0.2) Prothrombin Time 23.0 SEC (11.7-14.0) Prothromb Time International Ratio 2.1 (0.8-1.1) Creatinine 1.0 mg/dL (0.7-1.3) Estimated GFR (Cockcroft-Gault) 72.8 Total Bilirubin 1.6 mg/dL (0.2-1.0) Direct Bilirubin 0.4 mg/dL (0.0-0.2) Aspartate Amino Transf (AST/SGOT) 27 U/L (15-37) Alanine Aminotransferase (ALT/SGPT) 16 U/L (16-63) Alkaline Phosphatase 64 U/L (46-116) Total Protein 5.4 g/dL (6.4-8.2) Albumin 3.0 g/dL (3.4-5.0) Digoxin Level 0.3 ng/mL (0.9-2.0) Digoxin Last Dose Date 12/10/19 Digoxin Last Dose Time 1000 Microbiology 12/09/19 Blood Culture - Preliminary, Resulted NO GROWTH AFTER 1 DAY Medications Current Medications Daptomycin 625 mg/ Sodium Chloride 50 ml @ 100 mls/hr ONCE ONCE IV Last administered on 12/11/19at 09:46; Start 12/11/19 at 09:00; Stop 12/11/19 at 09:29; Status DC Lactobacillus Rhamnosus (Culturelle) 1 cap BID PO Last administered on 12/11/19at 08:11; Start 12/10/19 at 21:00 Metoprolol Tartrate (Lopressor Vial) 5 mg PRN Q6HRS PRN IVP HYPERTENSION; Start 12/10/19 at 14:15 Metoprolol Tartrate (Lopressor) 50 mg BID PO Last administered on 12/11/19at 08:12; Start 12/10/19 at 21:00 Non-Formulary Medication (Doxazosin Mesylate ) 1 tab DAILY PO ; Start 12/11/19 at 09:00; Status UNV Non-Formulary Medication (Garlic ) 1,000 mg BID PO ; Start 12/10/19 at 21:00; Status UNV Non-Formulary Medication (Metoprolol Tartrate ) 150 mg BID PO ; Start 12/10/19 at 21:00; Status UNV Non-Formulary Medication (Ubidecarenone (Co Q-10)) 200 mg BID PO ; Start 12/10/19 at 21:00; Status UNV Vancomycin HCl (Vancomycin Trough Level) 1 each 1X ONCE MC ; Start 12/11/19 at 12:30; Stop 12/11/19 at 12:31; Status Cancel Vancomycin HCl 2 gm/Sodium Chloride 500 ml @ 250 mls/hr Q12H IV ; Start 12/10/19 at 13:00; Stop 12/10/19 at 08:56; Status DC Warfarin Sodium (Coumadin Per Physician) 1 each PRN DAILY PRN MC SEE COMMENTS; Start 12/11/19 at 07:30 Warfarin Sodium (Coumadin) 4 mg DAILY16 PO ; Start 12/11/19 at 16:00 Vitals/I & O Vital Sign - Last 24 Hours 12/10/19 12/10/19 12/10/19 12/10/19 14:52 19:30 19:50 20:26 Temp 97.9 98.5 97.9 98.5 Pulse 74 80 80 Resp 18 21 B/P (MAP) 99/47 (64) 123/52 (75) 123/52 Pulse Ox 98 97 O2 Delivery Nasal Cannula Nasal Cannula Room Air O2 Flow Rate 2.0 3.0 812/11/19 12/11/19 12/11/19 23:30 03:45 07:00 08:00 Temp 97.5 98.0 97.4 97.5 98.0 97.4 Pulse 72 71 77 Resp 28 B/P (MAP) 109/56 (73) 114/56 (75) 110/64 (79) Pulse Ox 98 97 97 O2 Delivery Nasal Cannula Nasal Cannula Nasal Cannula Room Air O2 Flow Rate 3.0 3.0 2.0 2.0 12/11/19 12/11/19 12/11/19 08:11 08:12 08:12 Pulse 77 77 77 B/P (MAP) 110/64 110/64 110/64 Intake and Output 12/10/19 12/10/19 12/11/19 15:00 23:00 07:00 Intake Total 600 ml 300 ml 350 ml Output Total 700 ml 500 ml 350 ml Balance -100 ml -200 ml 0 ml SEBASTIAN JOLLY MD Dec 11, 2019 11:08
[2019-12-11 11:17] VITALS: BP 90/48
--- NOTE | 2019-12-11 12:46 | PDOC ---
PROGRESS NOTES Date of Service DATE: 12/11/19 TIME: 12:42 Subjective Subjective feels better with less redness and edema in face.. lab reviewd. magnesium low 1.6. systolic bp 90. Objective Objective Vital Signs Date Time Temp Pulse Resp B/P (MAP) Pulse Ox O2 Delivery O2 Flow Rate FiO2 12/11/19 11:17 98.3 70 24 90/48 (62) 97 Nasal Cannula 2.0 98.3 Intake and Output 12/11/19 07:00 Intake Total 1250 ml Output Total 1550 ml Balance -300 ml Intake Oral 1250 ml Output Urine Total 1550 ml Physical Exam Abdomen: Soft, Other (obese) Heart: Regular rate, Normal S1, Normal S2 Extremities: No edema General: Alert HEENT: Atraumatic Lungs: Clear to auscultation Neuro: Normal speech Psych/Mental Status: Mental status NL Skin: Other (erythema and swelling in cheeks and below eyes better) Assessment Assessment Problems1. Facial cellulitis, perhaps related to his mask from his CPAP. 2. Persistent atrial fibrillation. He is on Coumadin. 3. Coagulopathy.resolved 4. Obstructive sleep apnea, treated with CPAP. 5. Morbid obesity. 6. Thalassemia trait with chronic anemia. 7. Elevated BNP. 8. Sepsis related to the facial cellulitis since he had a fever earlier. 9. Permanent pacemaker. mild thrombocytopenia hypomagnesemia Medical Problems: (1) Sepsis Status: Acute Plan Plan of Care continue iv rocephin and zyvox resume coumadin d/c doxazocin due to low bp iv magnesium today lab tomorrow Comment Review of Relevant I have reviewed the following items chucky (where applicable) has been applied. Labs Laboratory Tests Test 12/09/19 21:35 12/10/19 01:30 12/10/19 08:50 12/11/19 04:00 White Blood Count 5.4 x10^3/uL (4.0-11.0) 3.7 x10^3/uL (4.0-11.0) Red Blood Count 5.16 x10^6/uL (4.30-5.70) 4.69 x10^6/uL (4.30-5.70) Hemoglobin 10.9 g/dL (13.0-17.5) 10.0 g/dL (13.0-17.5) Hematocrit 34.4 % (39.0-53.0) 31.1 % (39.0-53.0) Mean Corpuscular Volume 67 fL (79-100) 66 fL (79-100) Mean Corpuscular Hemoglobin 21 pg (25-35) 21 pg (25-35) Mean Corpuscular Hemoglobin Concent 32 g/dL (31-37) 32 g/dL (31-37) Red Cell Distribution Width 15.7 % (11.5-14.5) 15.7 % (11.5-14.5) Platelet Count 118 x10^3/uL (140-400) 90 x10^3/uL (140-400) Neutrophils (%) (Auto) 85 % (31-73) 71 % (31-73) Lymphocytes (%) (Auto) 8 % (24-48) 17 % (24-48) Monocytes (%) (Auto) 6 % (0-9) 10 % (0-9) Eosinophils (%) (Auto) 0 % (0-3) 2 % (0-3) Basophils (%) (Auto) 0 % (0-3) 0 % (0-3) Neutrophils # (Auto) 4.6 x10^3/uL (1.8-7.7) 2.6 x10^3/uL (1.8-7.7) Lymphocytes # (Auto) 0.5 x10^3/uL (1.0-4.8) 0.6 x10^3/uL (1.0-4.8) Monocytes # (Auto) 0.3 x10^3/uL (0.0-1.1) 0.4 x10^3/uL (0.0-1.1) Eosinophils # (Auto) 0.0 x10^3/uL (0.0-0.7) 0.1 x10^3/uL (0.0-0.7) Basophils # (Auto) 0.0 x10^3/uL (0.0-0.2) 0.0 x10^3/uL (0.0-0.2) Platelet Estimate Decreased (ADEQUATE) Giant Platelets Occ Polychromasia Slight Hypochromasia Mod Microcytosis Marked Tear Drop Cells Occ Prothrombin Time 35.6 SEC (11.7-14.0) 34.8 SEC (11.7-14.0) 23.0 SEC (11.7-14.0) Prothromb Time International Ratio 3.5 (0.8-1.1) 3.4 (0.8-1.1) 2.1 (0.8-1.1) Activated Partial Thromboplast Time 62 SEC (24-38) Urine Collection Type Unknown Urine Color Yellow Urine Clarity Clear Urine pH 7.0 (<5.0-8.0) Urine Specific [place] 1.015 (1.000-1.030) Urine Protein Negative mg/dL (NEG-TRACE) Urine Glucose (UA) Negative mg/dL (NEG) Urine Ketones (Stick) Negative mg/dL (NEG) Urine Blood Negative (NEG) Urine Nitrite Negative (NEG) Urine Bilirubin Negative (NEG) Urine Urobilinogen Dipstick 1.0 mg/dL (0.2 mg/dL) Urine Leukocyte Esterase Small (NEG) Urine RBC 3-5 /HPF (0-2) Urine WBC 11-20 /HPF (0-4) Urine Squamous Epithelial Cells Occ /LPF Urine Bacteria 0 /HPF (0-FEW) Urine Mucus Marked /LPF Sodium Level 138 mmol/L (136-145) Potassium Level 3.9 mmol/L (3.5-5.1) Chloride Level 105 mmol/L (98-107) Carbon Dioxide Level 29 mmol/L (21-32) Anion Gap 4 (6-14) Blood Urea Nitrogen 15 mg/dL (8-26) Creatinine 1.1 mg/dL (0.7-1.3) 1.0 mg/dL (0.7-1.3) Estimated GFR (Cockcroft-Gault) 65.3 72.8 BUN/Creatinine Ratio 14 (6-20) Glucose Level 134 mg/dL (70-99) Lactic Acid Level 2.1 mmol/L (0.4-2.0) 1.7 mmol/L (0.4-2.0) 1.3 mmol/L (0.4-2.0) Calcium Level 8.4 mg/dL (8.5-10.1) Magnesium Level 1.9 mg/dL (1.8-2.4) Total Bilirubin 2.3 mg/dL (0.2-1.0) 1.6 mg/dL (0.2-1.0) Aspartate Amino Transf (AST/SGOT) 18 U/L (15-37) 27 U/L (15-37) Alanine Aminotransferase (ALT/SGPT) 15 U/L (16-63) 16 U/L (16-63) Alkaline Phosphatase 70 U/L (46-116) 64 U/L (46-116) Creatine Kinase 100 U/L (39-308) Creatine Kinase MB (Mass) 0.9 ng/mL (0.0-3.6) Creatine Kinase MB Relative Index 0.9 % (0-4) Troponin I Quantitative < 0.017 ng/mL (0.000-0.055) CO-Cdc-P-Type Natriuretic Peptide 4301 pg/mL (0-449) Total Protein 6.4 g/dL (6.4-8.2) 5.4 g/dL (6.4-8.2) Albumin 3.5 g/dL (3.4-5.0) 3.0 g/dL (3.4-5.0) Albumin/Globulin Ratio 1.2 (1.0-1.7) Lipase 96 U/L (73-393) Thyroid Stimulating Hormone (TSH) 1.137 uIU/mL (0.358-3.74) Digoxin Level 0.3 ng/mL (0.9-2.0) 0.3 ng/mL (0.9-2.0) Digoxin Last Dose Date 12/10/19 12/10/19 Digoxin Last Dose Time 1000 1000 Direct Bilirubin 0.4 mg/dL (0.0-0.2) Laboratory Tests Test 12/11/19 04:00 White Blood Count 3.7 x10^3/uL (4.0-11.0) Red Blood Count 4.69 x10^6/uL (4.30-5.70) Hemoglobin 10.0 g/dL (13.0-17.5) Hematocrit 31.1 % (39.0-53.0) Mean Corpuscular Volume 66 fL (79-100) Mean Corpuscular Hemoglobin 21 pg (25-35) Mean Corpuscular Hemoglobin Concent 32 g/dL (31-37) Red Cell Distribution Width 15.7 % (11.5-14.5) Platelet Count 90 x10^3/uL (140-400) Neutrophils (%) (Auto) 71 % (31-73) Lymphocytes (%) (Auto) 17 % (24-48) Monocytes (%) (Auto) 10 % (0-9) Eosinophils (%) (Auto) 2 % (0-3) Basophils (%) (Auto) 0 % (0-3) Neutrophils # (Auto) 2.6 x10^3/uL (1.8-7.7) Lymphocytes # (Auto) 0.6 x10^3/uL (1.0-4.8) Monocytes # (Auto) 0.4 x10^3/uL (0.0-1.1) Eosinophils # (Auto) 0.1 x10^3/uL (0.0-0.7) Basophils # (Auto) 0.0 x10^3/uL (0.0-0.2) Prothrombin Time 23.0 SEC (11.7-14.0) Prothromb Time International Ratio 2.1 (0.8-1.1) Creatinine 1.0 mg/dL (0.7-1.3) Estimated GFR (Cockcroft-Gault) 72.8 Total Bilirubin 1.6 mg/dL (0.2-1.0) Direct Bilirubin 0.4 mg/dL (0.0-0.2) Aspartate Amino Transf (AST/SGOT) 27 U/L (15-37) Alanine Aminotransferase (ALT/SGPT) 16 U/L (16-63) Alkaline Phosphatase 64 U/L (46-116) Total Protein 5.4 g/dL (6.4-8.2) Albumin 3.0 g/dL (3.4-5.0) Digoxin Level 0.3 ng/mL (0.9-2.0) Digoxin Last Dose Date 12/10/19 Digoxin Last Dose Time 1000 Microbiology 12/09/19 Blood Culture - Preliminary, Resulted NO GROWTH AFTER 1 DAY Medications Current Medications Acetaminophen (Tylenol) 1,000 mg 1X ONCE PO Last administered on 12/09/19at 23:06; Start 12/09/19 at 22:45; Stop 12/09/19 at 22:46; Status DC Vancomycin HCl (Vanco Per Pharmacy) 1 each PRN DAILY PRN MC SEE COMMENTS Last a dministered on 12/10/19at 02:14; Start 12/09/19 at 23:30; Stop 12/10/19 at 08:56; Status DC Sodium Chloride 500 ml @ 500 mls/hr 1X ONCE IV Last administered on 12/09/19at 23:30; Start 12/09/19 at 23:30; Stop 12/10/19 at 00:29; Status DC Vancomycin HCl 2 gm/Sodium Chloride 500 ml @ 250 mls/hr 1X ONCE IV Last administered on 12/10/19at 01:05; Start 12/09/19 at 23:30; Stop 12/10/19 at 01:29; Status DC Sodium Chloride 1,000 ml @ 100 mls/hr Q10H IV Last administered on 12/10/19at 06:37; Start 12/10/19 at 00:15; Stop 12/10/19 at 09:46; Status DC Vancomycin HCl 2 gm/Sodium Chloride 500 ml @ 250 mls/hr Q12H IV ; Start 12/10/19 at 13:00; Stop 12/10/19 at 08:56; Status DC Vancomycin HCl (Vancomycin Trough Level) 1 each 1X ONCE MC ; Start 12/11/19 at 12:30; Stop 12/11/19 at 12:31; Status Cancel Linezolid (Zyvox) 600 mg BID PO Last administered on 12/11/19at 08:11; Start 12/10/19 at 09:00 Ceftriaxone Sodium (Rocephin) 2 gm Q24H IVP Last administered on 12/11/19at 09:46; Start 12/10/19 at 10:00 Digoxin (Lanoxin) 125 mcg DAILY PO Last administered on 12/11/19at 08:11; Start 12/10/19 at 10:00 Doxazosin Mesylate (Cardura) 2 mg DAILY PO Last administered on 12/11/19at 08:12; Start 12/10/19 at 10:00 Finasteride (Proscar) 5 mg DAILY PO Last administered on 12/11/19at 08:11; Start 12/10/19 at 10:00 Metoprolol Tartrate (Lopressor) 100 mg BID PO ; Start 12/10/19 at 10:00; Status Cancel Acetaminophen (Tylenol) 650 mg PRN Q6HRS PRN PO MILD PAIN / TEMP > 100.3'F Last administered on 12/10/19at 20:26; Start 12/10/19 at 09:45 Digoxin (Lanoxin) 125 mcg DAILY PO ; Start 12/10/19 at 10:00; Status Cancel Finasteride (Proscar) 5 mg DAILY PO ; Start 12/10/19 at 10:00; Status Cancel Non-Formulary Medication (Doxazosin Mesylate ) 1 tab DAILY PO ; Start 12/11/19 at 09:00; Status UNV Non-Formulary Medication (Garlic ) 1,000 mg BID PO ; Start 12/10/19 at 21:00; Status UNV Non-Formulary Medication (Metoprolol Tartrate ) 150 mg BID PO ; Start 12/10/19 at 21:00; Status UNV Fish Oil (Fish Oil) 1,000 mg DAILY PO Last administered on 12/11/19at 08:11; Start 12/10/19 at 10:00 Non-Formulary Medication (Ubidecarenone (Co Q-10)) 200 mg BID PO ; Start 12/10/19 at 21:00; Status UNV Metoprolol Tartrate (Lopressor) 100 mg BID PO Last administered on 12/10/19at 10:18; Start 12/10/19 at 10:00; Stop 12/10/19 at 14:03; Status DC Lactobacillus Rhamnosus (Culturelle) 1 cap BID PO Last administered on 12/11/19at 08:11; Start 12/10/19 at 21:00 Metoprolol Tartrate (Lopressor) 50 mg BID PO Last administered on 12/11/19at 08:12; Start 12/10/19 at 21:00 Metoprolol Tartrate (Lopressor Vial) 5 mg PRN Q6HRS PRN IVP HYPERTENSION; Start 12/10/19 at 14:15 Warfarin Sodium (Coumadin) 4 mg DAILY16 PO ; Start 12/11/19 at 16:00 Warfarin Sodium (Coumadin Per Physician) 1 each PRN DAILY PRN MC SEE COMMENTS; Start 12/11/19 at 07:30 Daptomycin 625 mg/ Sodium Chloride 50 ml @ 100 mls/hr ONCE ONCE IV Last administered on 12/11/19at 09:46; Start 12/11/19 at 09:00; Stop 12/11/19 at 09:29; Status DC Active Scripts Active Reported Otis 3 Fish Oil Softgel (Otis-3 Fatty Acids/Fish Oil) 1 Each Capsule.dr 1 Each PO DAILY Garlic 1,000 Mg Capsule 1,000 Mg PO BID Co Q-10 (Ubidecarenone) 200 Mg Capsule 200 Mg PO BID Warfarin Sodium 4 Mg Tablet 4.5 Mg PO DAILY Finasteride 5 Mg Tablet 5 Mg PO DAILY Doxazosin Mesylate 2 Mg Tablet 1 Tab PO DAILY Digoxin 125 Mcg Tablet 125 Mcg PO DAILY Metoprolol Tartrate 100 Mg Tablet 150 Mg PO BID Vitals/I & O Vital Sign - Last 24 Hours 12/10/19 12/10/19 12/10/19 12/10/19 14:52 19:30 19:50 20:26 Temp 97.9 98.5 97.9 98.5 Pulse 74 80 80 Resp 18 21 B/P (MAP) 99/47 (64) 123/52 (75) 123/52 Pulse Ox 98 97 O2 Delivery Nasal Cannula Nasal Cannula Room Air O2 Flow Rate 2.0 3.0 12/10/19 12/11/19 12/11/19 12/11/19 23:30 03:45 07:00 08:00 Temp 97.5 98.0 97.4 97.5 98.0 97.4 Pulse 72 71 77 Resp 22 22 28 B/P (MAP) 109/56 (73) 114/56 (75) 110/64 (79) Pulse Ox 98 97 97 O2 Delivery Nasal Cannula Nasal Cannula Nasal Cannula Room Air O2 Flow Rate 3.0 3.0 2.0 2.0 12/11/19 12/11/19 12/11/19 12/11/19 08:11 08:12 08:12 11:17 Temp 98.3 98.3 Pulse 77 77 77 70 Resp 24 B/P (MAP) 110/64 110/64 110/64 90/48 (62) Pulse Ox 97 O2 Delivery Nasal Cannula O2 Flow Rate 2.0 Intake and Output 12/10/19 12/10/19 12/11/19 15:00 23:00 07:00 Intake Total 600 ml 300 ml 350 ml Output Total 700 ml 500 ml 350 ml Balance -100 ml -200 ml 0 ml Justicifation of Admission Dx: Justifications for Admission: Justification of Admission Dx: Yes Sepsis: Infection SANDRA GARDINER MD Dec 11, 2019 12:46
[2019-12-11] MEDS ORDERED: MAGNESIUM SULFATE 2GM 50 ML IV ONE (13:00)
[2019-12-11 15:00] VITALS: BP 95/52
[2019-12-11] MEDS ORDERED: WARFARIN 4 MG TABLET. PO SCH (16:00)
[2019-12-11] MEDS: ACETAMINOPHEN 325 MG TABLET. PO PRN (18:18)
[2019-12-11 19:47] VITALS: BP 117/61
[2019-12-11 22:57] VITALS: BP 136/61
[2019-12-12] VITALS (7 sets, daily range): BP systolic 93–127; BP diastolic 52–73
[2019-12-12 04:29] LABS: BASO % 0 % (0-3); EOS # 0.1 x10^3/uL (0.0-0.7); EOS % 3 % (0-3); HEMATOCRIT 34.7 % (39.0-53.0); HEMOGLOBIN 11.1 g/dL (13.0-17.5); LYMPH % 22 % (24-48); MEAN CORPUSCULAR HEMOGLOBIN 21 pg (25-35); MEAN CORPUSCULAR HGB CONC 32 g/dL (31-37); MEAN CORPUSCULAR VOLUME 67 fL (79-100); MONO # 0.4 x10^3/uL (0.0-1.1); MONO % 8 % (0-9); NEUT # 3.1 x10^3/uL (1.8-7.7); NEUT % 67 % (31-73); PLATELET COUNT 119 x10^3/uL (140-400); RED BLOOD COUNT 5.21 x10^6/uL (4.30-5.70); RED CELL DISTRIBUTION WIDTH 15.7 % (11.5-14.5); WHITE BLOOD COUNT 4.6 x10^3/uL (4.0-11.0)
[2019-12-12 04:38] LABS: PROTHROMBIN TIME PATIENT 18.8 SEC (11.7-14.0)
[2019-12-12 04:40] LABS: CALCIUM 8.1 mg/dL (8.5-10.1); CREATININE 1.2 mg/dL (0.7-1.3); MAGNESIUM 2.5 mg/dL (1.8-2.4); POTASSIUM 3.4 mmol/L (3.5-5.1)
--- NOTE | 2019-12-12 06:54 | PDOC ---
Infectious Disease Note Subjective Subjective Better with less swelling in face but left ear swelled - and pain. some better Having loose stool No F/c/N/v/SOA. Vital Sign Vital Signs Vital Signs Date Time Temp Pulse Resp B/P (MAP) Pulse Ox O2 Delivery O2 Flow Rate FiO2 12/12/19 03:23 98.0 68 18 100/52 (68) 98 Room Air 98.0 12/11/19 11:17 2.0 Physical Exam PHYSICAL EXAM CONSTITUTIONAL: He is lying in bed. He is cooperative. He is in no acute distress. HEENT: Pupils are equal and reactive. He has normal conjunctivae. He does have improved facial swelling above his eyes and around his eyes and over the bridge of his nose. He has some mild erythema associated with it and some mild tenderness to palpation - better. Oral cavity: Oropharynx has dentures, otherwise clear. Left ear canal with cerum. and some pinna redness NECK: Supple, no JVD. LUNGS: Clear to auscultation. HEART: S1, S2. Pacemaker scars without complications. ABDOMEN: Obese, soft, nontender, nondistended with positive bowel sounds. EXTREMITIES: No clubbing, cyanosis or gross edema. SKIN: Warm to touch without generalized rash. NEUROLOGIC: He is nonfocal. PSYCHIATRIC: Affect is appropriate. Labs Lab Laboratory Tests Test 12/12/19 04:15 White Blood Count 4.6 x10^3/uL (4.0-11.0) Red Blood Count 5.21 x10^6/uL (4.30-5.70) Hemoglobin 11.1 g/dL (13.0-17.5) Hematocrit 34.7 % (39.0-53.0) Mean Corpuscular Volume 67 fL (79-100) Mean Corpuscular Hemoglobin 21 pg (25-35) Mean Corpuscular Hemoglobin Concent 32 g/dL (31-37) Red Cell Distribution Width 15.7 % (11.5-14.5) Platelet Count 119 x10^3/uL (140-400) Neutrophils (%) (Auto) 67 % (31-73) Lymphocytes (%) (Auto) 22 % (24-48) Monocytes (%) (Auto) 8 % (0-9) Eosinophils (%) (Auto) 3 % (0-3) Basophils (%) (Auto) 0 % (0-3) Neutrophils # (Auto) 3.1 x10^3/uL (1.8-7.7) Lymphocytes # (Auto) 1.0 x10^3/uL (1.0-4.8) Monocytes # (Auto) 0.4 x10^3/uL (0.0-1.1) Eosinophils # (Auto) 0.1 x10^3/uL (0.0-0.7) Basophils # (Auto) 0.0 x10^3/uL (0.0-0.2) Prothrombin Time 18.8 SEC (11.7-14.0) Prothromb Time International Ratio 1.6 (0.8-1.1) Sodium Level 141 mmol/L (136-145) Potassium Level 3.4 mmol/L (3.5-5.1) Chloride Level 104 mmol/L (98-107) Carbon Dioxide Level 26 mmol/L (21-32) Anion Gap 11 (6-14) Blood Urea Nitrogen 19 mg/dL (8-26) Creatinine 1.2 mg/dL (0.7-1.3) Estimated GFR (Cockcroft-Gault) 59.0 Glucose Level 151 mg/dL (70-99) Calcium Level 8.1 mg/dL (8.5-10.1) Magnesium Level 2.5 mg/dL (1.8-2.4) Micro CT HEAD IMPRESSION: Paranasal sinus disease disease as discussed above. No facial or orbital abscess is seen. Objective Assessment Bactermia /4 bottles 12/08 Fever -better Facial Cellulitis - better Leukopenia - has Thalasemia - better Lactic acidosis - better Thrombocytopenia Afib Elevated T bili Plan Plan of Care Redose Dapto today Cortisporin only available for ear so will start Cont po Zyvox/Rocephin F/u lab and cults D/w Lactobacillus - may cause diarrhea D/w nursing MARYANN HITCHCOCK MD Dec 12, 2019 06:54
[2019-12-12] MEDS ORDERED: DAPTOMYCIN IV ONE (08:00)
[2019-12-12] MEDS ORDERED: NORMAL SALINE IV ONE (08:00)
[2019-12-12] MEDS: FINASTERIDE 5 MG TABLET. PO SCH (08:21)
[2019-12-12] MEDS: LINEZOLID 600 MG TABLET PO SCH ×2 (08:21→20:41)
[2019-12-12] MEDS: METOPROLOL TART IMMED RELEASE 50 MG TABLET. PO SCH ×2 (08:21→20:42)
[2019-12-12] MEDS: NEOMYCIN/POLYMYXIN/HC OTIC SUSPENSION 10ML BOTTLE. AS SCH ×3 (08:21→20:42)
[2019-12-12] MEDS: OMEGA-3 FATTY ACIDS/FISH OIL 1,000 MG CAPSULE. PO SCH (08:21)
[2019-12-12] MEDS: DIGOXIN 125 MCG TABLET. PO SCH (08:22)
[2019-12-12] MEDS: cefTRIAXone IV Push 2 GM VIAL. IVP SCH (09:32)
[2019-12-12] MEDS ORDERED: POTASSIUM CHLORIDE 20 MEQ TABLET.ER. PO ONE (10:30)
--- NOTE | 2019-12-12 10:37 | PDOC ---
PROGRESS NOTES Date of Service DATE: 12/12/19 TIME: 10:33 Subjective Subjective had diarrhea last night. echo with preserved LVEF. bp is okay. left facial redness, left ear red and swollen with scaly area on pinna. lab reviewed.. inr 1.6. Objective Objective Vital Signs Date Time Temp Pulse Resp B/P (MAP) Pulse Ox O2 Delivery O2 Flow Rate FiO2 12/12/19 08:22 78 122/59 12/12/19 08:00 Room Air 2.0 12/12/19 07:00 97.3 20 94 97.3 Intake and Output 12/12/19 07:00 Intake Total 1590 ml Output Total 500 ml Balance 1090 ml Intake Oral 1110 ml Tube Feeding 480 ml Output Urine Total 500 ml # Voids 1 # Bowel Movements 1 Physical Exam Abdomen: Soft Heart: Regular rate, Normal S1, Normal S2 Extremities: No edema General: Alert HEENT: Other (left pinna red and swollen. facial rash fading and less swelling) Lungs: Clear to auscultation Neuro: Normal speech Psych/Mental Status: Mental status NL Skin: Other (redness cheeks and left ear ) Assessment Assessment Problems1. Facial cellulitis, perhaps related to his mask from his CPAP. 2. Persistent atrial fibrillation. He is on Coumadin. 3. Coagulopathy.resolved 4. Obstructive sleep apnea, treated with CPAP. 5. Morbid obesity. 6. Thalassemia trait with chronic anemia. 7. Elevated BNP. 8. Sepsis related to the facial cellulitis since he had a fever earlier. 9. Permanent pacemaker. mild thrombocytopenia hypokalemia diarrhea Medical Problems: (1) Sepsis Status: Acute Plan Plan of Care continue iv rocephin and zyvox daptomycin today kcl today stool for c. diff increase coumadin Comment Review of Relevant I have reviewed the following items chucky (where applicable) has been applied. Labs Laboratory Tests Test 12/11/19 04:00 12/12/19 04:15 White Blood Count 3.7 x10^3/uL (4.0-11.0) 4.6 x10^3/uL (4.0-11.0) Red Blood Count 4.69 x10^6/uL (4.30-5.70) 5.21 x10^6/uL (4.30-5.70) Hemoglobin 10.0 g/dL (13.0-17.5) 11.1 g/dL (13.0-17.5) Hematocrit 31.1 % (39.0-53.0) 34.7 % (39.0-53.0) Mean Corpuscular Volume 66 fL (79-100) 67 fL (79-100) Mean Corpuscular Hemoglobin 21 pg (25-35) 21 pg (25-35) Mean Corpuscular Hemoglobin Concent 32 g/dL (31-37) 32 g/dL (31-37) Red Cell Distribution Width 15.7 % (11.5-14.5) 15.7 % (11.5-14.5) Platelet Count 90 x10^3/uL (140-400) 119 x10^3/uL (140-400) Neutrophils (%) (Auto) 71 % (31-73) 67 % (31-73) Lymphocytes (%) (Auto) 17 % (24-48) 22 % (24-48) Monocytes (%) (Auto) 10 % (0-9) 8 % (0-9) Eosinophils (%) (Auto) 2 % (0-3) 3 % (0-3) Basophils (%) (Auto) 0 % (0-3) 0 % (0-3) Neutrophils # (Auto) 2.6 x10^3/uL (1.8-7.7) 3.1 x10^3/uL (1.8-7.7) Lymphocytes # (Auto) 0.6 x10^3/uL (1.0-4.8) 1.0 x10^3/uL (1.0-4.8) Monocytes # (Auto) 0.4 x10^3/uL (0.0-1.1) 0.4 x10^3/uL (0.0-1.1) Eosinophils # (Auto) 0.1 x10^3/uL (0.0-0.7) 0.1 x10^3/uL (0.0-0.7) Basophils # (Auto) 0.0 x10^3/uL (0.0-0.2) 0.0 x10^3/uL (0.0-0.2) Prothrombin Time 23.0 SEC (11.7-14.0) 18.8 SEC (11.7-14.0) Prothromb Time International Ratio 2.1 (0.8-1.1) 1.6 (0.8-1.1) Creatinine 1.0 mg/dL (0.7-1.3) 1.2 mg/dL (0.7-1.3) Estimated GFR (Cockcroft-Gault) 72.8 59.0 Total Bilirubin 1.6 mg/dL (0.2-1.0) Direct Bilirubin 0.4 mg/dL (0.0-0.2) Aspartate Amino Transf (AST/SGOT) 27 U/L (15-37) Alanine Aminotransferase (ALT/SGPT) 16 U/L (16-63) Alkaline Phosphatase 64 U/L (46-116) Total Protein 5.4 g/dL (6.4-8.2) Albumin 3.0 g/dL (3.4-5.0) Digoxin Level 0.3 ng/mL (0.9-2.0) Digoxin Last Dose Date 12/10/19 Digoxin Last Dose Time 1000 Sodium Level 141 mmol/L (136-145) Potassium Level 3.4 mmol/L (3.5-5.1) Chloride Level 104 mmol/L (98-107) Carbon Dioxide Level 26 mmol/L (21-32) Anion Gap 11 (6-14) Blood Urea Nitrogen 19 mg/dL (8-26) Glucose Level 151 mg/dL (70-99) Calcium Level 8.1 mg/dL (8.5-10.1) Magnesium Level 2.5 mg/dL (1.8-2.4) Laboratory Tests Test 12/12/19 04:15 White Blood Count 4.6 x10^3/uL (4.0-11.0) Red Blood Count 5.21 x10^6/uL (4.30-5.70) Hemoglobin 11.1 g/dL (13.0-17.5) Hematocrit 34.7 % (39.0-53.0) Mean Corpuscular Volume 67 fL (79-100) Mean Corpuscular Hemoglobin 21 pg (25-35) Mean Corpuscular Hemoglobin Concent 32 g/dL (31-37) Red Cell Distribution Width 15.7 % (11.5-14.5) Platelet Count 119 x10^3/uL (140-400) Neutrophils (%) (Auto) 67 % (31-73) Lymphocytes (%) (Auto) 22 % (24-48) Monocytes (%) (Auto) 8 % (0-9) Eosinophils (%) (Auto) 3 % (0-3) Basophils (%) (Auto) 0 % (0-3) Neutrophils # (Auto) 3.1 x10^3/uL (1.8-7.7) Lymphocytes # (Auto) 1.0 x10^3/uL (1.0-4.8) Monocytes # (Auto) 0.4 x10^3/uL (0.0-1.1) Eosinophils # (Auto) 0.1 x10^3/uL (0.0-0.7) Basophils # (Auto) 0.0 x10^3/uL (0.0-0.2) Prothrombin Time 18.8 SEC (11.7-14.0) Prothromb Time International Ratio 1.6 (0.8-1.1) Sodium Level 141 mmol/L (136-145) Potassium Level 3.4 mmol/L (3.5-5.1) Chloride Level 104 mmol/L (98-107) Carbon Dioxide Level 26 mmol/L (21-32) Anion Gap 11 (6-14) Blood Urea Nitrogen 19 mg/dL (8-26) Creatinine 1.2 mg/dL (0.7-1.3) Estimated GFR (Cockcroft-Gault) 59.0 Glucose Level 151 mg/dL (70-99) Calcium Level 8.1 mg/dL (8.5-10.1) Magnesium Level 2.5 mg/dL (1.8-2.4) Microbiology 12/09/19 Blood Culture - Preliminary, Resulted NO GROWTH AFTER 2 DAYS 12/09/19 Urine Culture - Final, Complete Medications Current Medications Acetaminophen (Tylenol) 1,000 mg 1X ONCE PO Last administered on 12/09/19at 23:06; Start 12/09/19 at 22:45; Stop 12/09/19 at 22:46; Status DC Vancomycin HCl (Vanco Per Pharmacy) 1 each PRN DAILY PRN MC SEE COMMENTS Last administered on 12/10/19at 02:14; Start 12/09/19 at 23:30; Stop 12/10/19 at 08:56; Status DC Sodium Chloride 500 ml @ 500 mls/hr 1X ONCE IV Last administered on 12/09/19at 23:30; Start 12/09/19 at 23:30; Stop 12/10/19 at 00:29; Status DC Vancomycin HCl 2 gm/Sodium Chloride 500 ml @ 250 mls/hr 1X ONCE IV Last administered on 12/10/19at 01:05; Start 12/09/19 at 23:30; Stop 12/10/19 at 01:29 ; Status DC Sodium Chloride 1,000 ml @ 100 mls/hr Q10H IV Last administered on 12/10/19at 06:37; Start 12/10/19 at 00:15; Stop 12/10/19 at 09:46; Status DC Vancomycin HCl 2 gm/Sodium Chloride 500 ml @ 250 mls/hr Q12H IV ; Start 12/10/19 at 13:00; Stop 12/10/19 at 08:56; Status DC Vancomycin HCl (Vancomycin Trough Level) 1 each 1X ONCE MC ; Start 12/11/19 at 12:30; Stop 12/11/19 at 12:31; Status Cancel Linezolid (Zyvox) 600 mg BID PO Last administered on 12/12/19at 08:21; Start 12/10/19 at 09:00 Ceftriaxone Sodium (Rocephin) 2 gm Q24H IVP Last administered on 12/12/19at 09:32; Start 12/10/19 at 10:00 Digoxin (Lanoxin) 125 mcg DAILY PO Last administered on 12/12/19at 08:22; Start 12/10/19 at 10:00 Doxazosin Mesylate (Cardura) 2 mg DAILY PO Last administered on 12/11/19at 08:12; Start 12/10/19 at 10:00; Stop 12/11/19 at 12:46; Status DC Finasteride (Proscar) 5 mg DAILY PO Last administered on 12/12/19at 08:21; Start 12/10/19 at 10:00 Metoprolol Tartrate (Lopressor) 100 mg BID PO ; Start 12/10/19 at 10:00; Status Cancel Acetaminophen (Tylenol) 650 mg PRN Q6HRS PRN PO MILD PAIN / TEMP > 100.3'F Last administered on 12/11/19at 18:18; Start 12/10/19 at 09:45 Digoxin (Lanoxin) 125 mcg DAILY PO ; Start 12/10/19 at 10:00; Status Cancel Finasteride (Proscar) 5 mg DAILY PO ; Start 12/10/19 at 10:00; Status Cancel Non-Formulary Medication (Doxazosin Mesylate ) 1 tab DAILY PO ; Start 12/11/19 at 09:00; Status UNV Non-Formulary Medication (Garlic ) 1,000 mg BID PO ; Start 12/10/19 at 21:00; Status UNV Non-Formulary Medication (Metoprolol Tartrate ) 150 mg BID PO ; Start 12/10/19 at 21:00; Status UNV Fish Oil (Fish Oil) 1,000 mg DAILY PO Last administered on 12/12/19at 08:21; Start 12/10/19 at 10:00 Non-Formulary Medication (Ubidecarenone (Co Q-10)) 200 mg BID PO ; Start 12/10/19 at 21:00; Status UNV Metoprolol Tartrate (Lopressor) 100 mg BID PO Last administered on 12/10/19at 10:18; Start 12/10/19 at 10:00; Stop 12/10/19 at 14:03; Status DC Lactobacillus Rhamnosus (Culturelle) 1 cap BID PO Last administered on 12/11/19at 20:51; Start 12/10/19 at 21:00; Stop 12/12/19 at 07:30; Status DC Metoprolol Tartrate (Lopressor) 50 mg BID PO Last administered on 12/12/19at 08:21; Start 12/10/19 at 21:00 Metoprolol Tartrate (Lopressor Vial) 5 mg PRN Q6HRS PRN IVP HYPERTENSION; Start 12/10/19 at 14:15 Warfarin Sodium (Coumadin) 4 mg DAILY16 PO Last administered on 12/11/19at 16:29; Start 12/11/19 at 16:00 Warfarin Sodium (Coumadin Per Physician) 1 each PRN DAILY PRN MC SEE COMMENTS; Start 12/11/19 at 07:30 Daptomycin 625 mg/ Sodium Chloride 50 ml @ 100 mls/hr ONCE ONCE IV Last administered on 12/11/19at 09:46; Start 12/11/19 at 09:00; Stop 12/11/19 at 09:29; Status DC Magnesium Sulfate 50 ml @ 25 mls/hr 1X ONCE IV ; Start 12/11/19 at 13:00; Stop 12/11/19 at 12:54; Status DC Daptomycin 625 mg/ Sodium Chloride 50 ml @ 100 mls/hr ONCE ONCE IV Last administered on 12/12/19at 08:39; Start 12/12/19 at 08:00; Stop 12/12/19 at 08:29; Status DC Neomycin/ Polymyxin/ Hydrocortisone (Cortisporin Otic) 4 drop TID Last administered on 12/12/19at 08:21; Start 12/12/19 at 09:00 Active Scripts Active Reported Hudson 3 Fish Oil Softgel (Hudson-3 Fatty Acids/Fish Oil) 1 Each Capsule.dr 1 Each PO DAILY Garlic 1,000 Mg Capsule 1,000 Mg PO BID Co Q-10 (Ubidecarenone) 200 Mg Capsule 200 Mg PO BID Warfarin Sodium 4 Mg Tablet 4.5 Mg PO DAILY Finasteride 5 Mg Tablet 5 Mg PO DAILY Doxazosin Mesylate 2 Mg Tablet 1 Tab PO DAILY Digoxin 125 Mcg Tablet 125 Mcg PO DAILY Metoprolol Tartrate 100 Mg Tablet 150 Mg PO BID Vitals/I & O Vital Sign - Last 24 Hours 12/11/19 12/11/19 12/11/19 12/11/19 11:17 15:00 19:47 20:00 Temp 98.3 98.1 98.4 98.3 98.1 98.4 Pulse 70 66 76 Resp 24 20 18 B/P (MAP) 90/48 (62) 95/52 (66) 117/61 (79) Pulse Ox 97 97 92 O2 Delivery Nasal Cannula Room Air Room Air Room Air O2 Flow Rate 2.0 12/11/19 12/11/19 12/12/19 12/12/19 20:51 22:57 03:23 07:00 Temp 97.4 98.0 97.3 97.4 98.0 97.3 Pulse 76 85 68 78 Resp 18 18 20 B/P (MAP) 117/61 136/61 (86) 100/52 (68) 122/59 (80) Pulse Ox 99 98 94 O2 Delivery Room Air Room Air Room Air 12/12/19 12/12/19 12/12/19 08:00 08:21 08:22 Pulse 78 78 B/P (MAP) 122/59 122/59 O2 Delivery Room Air O2 Flow Rate 2.0 Intake and Output 12/11/19 12/11/19 12/12/19 15:00 23:00 07:00 Intake Total 600 ml 990 ml 0 ml Output Total 500 ml Balance 100 ml 990 ml 0 ml Justicifation of Admission Dx: Justifications for Admission: Justification of Admission Dx: Yes Sepsis: Infection SANDRA GARDINER MD Dec 12, 2019 10:37
--- NOTE | 2019-12-12 12:11 | PDOC ---
PROGRESS NOTES Date of Service: DATE: 12/12/19 TIME: 12:11 Subjective Subjective Had diarrhea last night. Denied any chest pain or shortness of breath Objective Objective Vital Signs Date Time Temp Pulse Resp B/P (MAP) Pulse Ox O2 Delivery O2 Flow Rate FiO2 12/12/19 11:22 97.7 58 18 93/56 (68) 96 Room Air 97.7 12/12/19 08:00 2.0 Intake and Output 12/12/19 07:00 Intake Total 1590 ml Output Total 500 ml Balance 1090 ml Intake Oral 1110 ml Tube Feeding 480 ml Output Urine Total 500 ml # Voids 1 # Bowel Movements 1 Physical Exam Abdomen: Soft Heart: Regular rate, Normal S1, Normal S2 Extremities: No edema General: Alert HEENT: Other (left pinna red and swollen. facial rash fading and less swelling) Lungs: Clear to auscultation MUSCULOSKELETAL: Osteoarthritic changes both hands Neuro: Normal speech Psych/Mental Status: Mental status NL Skin: Other (redness cheeks and left ear ) Assessment Assessment 1. Sepsis/fever/facial cellulitis/possible UTI: Continue antibiotics per ID team. 2. Chronic AFIB RVR, rate better controlled. Continue current medications i ncluding Coumadin for stroke prophylaxis. 3. Elevated pro NT BNP: suspect due to above culprits. No overt CHF 4. HTN: controlled 5. Mild microcytic hypochromic anemia and thrombocytopenia 6. Chronic coumadin therapy: INR therapeutic 7. Hypomagnesemia, replaced IV 8. SSS/tachybradycardia syndrome s/p PPM in situ: dual chamber but only RV lead is operational as A lead is off per pt. 9. KATE: CPAP compliant Plan Plan of Care Problems Medical Problems: (1) Sepsis Status: Acute Comment Review of Relevant I have reviewed the following items chucky (where applicable) has been applied. Labs Laboratory Tests Test 12/12/19 04:15 White Blood Count 4.6 x10^3/uL (4.0-11.0) Red Blood Count 5.21 x10^6/uL (4.30-5.70) Hemoglobin 11.1 g/dL (13.0-17.5) Hematocrit 34.7 % (39.0-53.0) Mean Corpuscular Volume 67 fL (79-100) Mean Corpuscular Hemoglobin 21 pg (25-35) Mean Corpuscular Hemoglobin Concent 32 g/dL (31-37) Red Cell Distribution Width 15.7 % (11.5-14.5) Platelet Count 119 x10^3/uL (140-400) Neutrophils (%) (Auto) 67 % (31-73) Lymphocytes (%) (Auto) 22 % (24-48) Monocytes (%) (Auto) 8 % (0-9) Eosinophils (%) (Auto) 3 % (0-3) Basophils (%) (Auto) 0 % (0-3) Neutrophils # (Auto) 3.1 x10^3/uL (1.8-7.7) Lymphocytes # (Auto) 1.0 x10^3/uL (1.0-4.8) Monocytes # (Auto) 0.4 x10^3/uL (0.0-1.1) Eosinophils # (Auto) 0.1 x10^3/uL (0.0-0.7) Basophils # (Auto) 0.0 x10^3/uL (0.0-0.2) Prothrombin Time 18.8 SEC (11.7-14.0) Prothromb Time International Ratio 1.6 (0.8-1.1) Sodium Level 141 mmol/L (136-145) Potassium Level 3.4 mmol/L (3.5-5.1) Chloride Level 104 mmol/L (98-107) Carbon Dioxide Level 26 mmol/L (21-32) Anion Gap 11 (6-14) Blood Urea Nitrogen 19 mg/dL (8-26) Creatinine 1.2 mg/dL (0.7-1.3) Estimated GFR (Cockcroft-Gault) 59.0 Glucose Level 151 mg/dL (70-99) Calcium Level 8.1 mg/dL (8.5-10.1) Magnesium Level 2.5 mg/dL (1.8-2.4) Microbiology 12/09/19 Blood Culture - Preliminary, Resulted NO GROWTH AFTER 2 DAYS 12/09/19 Urine Culture - Final, Complete Medications Current Medications Daptomycin 625 mg/ Sodium Chloride 50 ml @ 100 mls/hr ONCE ONCE IV Last administered on 12/12/19at 08:39; Start 12/12/19 at 08:00; Stop 12/12/19 at 08:2 9; Status DC Magnesium Sulfate 50 ml @ 25 mls/hr 1X ONCE IV ; Start 12/11/19 at 13:00; Stop 12/11/19 at 12:54; Status DC Neomycin/ Polymyxin/ Hydrocortisone (Cortisporin Otic) 4 drop TID Last administered on 12/12/19at 08:21; Start 12/12/19 at 09:00 Potassium Chloride (Klor-Con) 40 meq 1X ONCE PO Last administered on 12/12/19at 10:44; Start 12/12/19 at 10:30; Stop 12/12/19 at 10:36; Status DC Vancomycin HCl (Vancomycin Trough Level) 1 each 1X ONCE MC ; Start 12/11/19 at 12:30; Stop 12/11/19 at 12:31; Status Cancel Warfarin Sodium (Coumadin) 2 mg DAILY16 PO ; Start 12/12/19 at 16:00 Warfarin Sodium (Coumadin) 2.5 mg DAILY16 PO ; Start 12/12/19 at 16:00 Warfarin Sodium (Coumadin) 4 mg DAILY16 PO Last administered on 12/11/19at 16:29; Start 12/11/19 at 16:00; Stop 12/12/19 at 10:33; Status DC Warfarin Sodium (Coumadin) 4.5 mg DAILY16 PO ; Start 12/12/19 at 16:00; Status UNV Vitals/I & O Vital Sign - Last 24 Hours 12/11/19 12/11/19 12/11/19 12/11/19 15:00 19:47 20:00 20:51 Temp 98.1 98.4 98.1 98.4 Pulse 66 76 76 Resp 20 18 B/P (MAP) 95/52 (66) 117/61 (79) 117/61 Pulse Ox 97 92 O2 Delivery Room Air Room Air Room Air 12/11/19 12/12/19 12/12/19 12/12/19 22:57 03:23 07:00 08:00 Temp 97.4 98.0 97.3 97.4 98.0 97.3 Pulse 85 68 78 Resp 18 18 20 B/P (MAP) 136/61 (86) 100/52 (68) 122/59 (80) Pulse Ox 99 98 94 O2 Delivery Room Air Room Air Room Air Room Air O2 Flow Rate 2.0 12/12/19 12/12/19 12/12/19 08:21 08:22 11:22 Temp 97.7 97.7 Pulse 78 78 58 Resp 18 B/P (MAP) 122/59 122/59 93/56 (68) Pulse Ox 96 O2 Delivery Room Air Intake and Output 12/11/19 12/11/19 12/12/19 15:00 23:00 07:00 Intake Total 600 ml 990 ml 0 ml Output Total 500 ml Balance 100 ml 990 ml 0 ml SEBASTIAN JOLLY MD Dec 12, 2019 12:11
[2019-12-12] MEDS ORDERED: WARFARIN 2 MG TABLET. PO SCH (16:00)
[2019-12-12] MEDS ORDERED: WARFARIN 2.5 MG TABLET. PO SCH (16:00)
[2019-12-12] MEDS ORDERED: WARFARIN 4 MG TABLET. PO SCH (16:00)
[2019-12-13 03:12] VITALS: BP 117/69
[2019-12-13 04:07] LABS: PROTHROMBIN TIME PATIENT 18.1 SEC (11.7-14.0)
[2019-12-13 04:14] LABS: CALCIUM 7.7 mg/dL (8.5-10.1); GFR 72.8; POTASSIUM 3.4 mmol/L (3.5-5.1)
[2019-12-13 07:00] VITALS: BP 129/72
--- NOTE | 2019-12-13 08:20 | PDOC ---
Infectious Disease Note Subjective Subjective feeling much better, swelling of face is gone ROS ROS no n/v/d/sob Vital Sign Vital Signs Vital Signs Date Time Temp Pulse Resp B/P (MAP) Pulse Ox O2 Delivery O2 Flow Rate FiO2 12/13/19 03:12 98.7 85 18 117/69 (85) 99 Room Air 98.7 12/12/19 08:00 2.0 Physical Exam PHYSICAL EXAM CONSTITUTIONAL: He is lying in bed. He is cooperative. He is in no acute distress. HEENT: Pupils are equal and reactive. He has normal conjunctivae. He does have improved facial swelling above his eyes and around his eyes and over the bridge of his nose. He has some mild erythema associated with it and some mild tenderness to palpation - better. Oral cavity: Oropharynx has dentures, otherwise clear. Left ear canal with cerum. and some pinna redness NECK: Supple, no JVD. LUNGS: Clear to auscultation. HEART: S1, S2. Pacemaker scars without complications. ABDOMEN: Obese, soft, nontender, nondistended with positive bowel sounds. EXTREMITIES: No clubbing, cyanosis or gross edema. SKIN: Warm to touch without generalized rash. NEUROLOGIC: He is nonfocal. PSYCHIATRIC: Affect is appropriate. Labs Lab Laboratory Tests Test 12/13/19 02:55 Prothrombin Time 18.1 SEC (11.7-14.0) Prothromb Time International Ratio 1.5 (0.8-1.1) Sodium Level 144 mmol/L (136-145) Potassium Level 3.4 mmol/L (3.5-5.1) Chloride Level 107 mmol/L (98-107) Carbon Dioxide Level 29 mmol/L (21-32) Anion Gap 8 (6-14) Blood Urea Nitrogen 14 mg/dL (8-26) Creatinine 1.0 mg/dL (0.7-1.3) Estimated GFR (Cockcroft-Gault) 72.8 Glucose Level 110 mg/dL (70-99) Calcium Level 7.7 mg/dL (8.5-10.1) Micro BC 1/4 G + cocci Objective Assessment Bactermia 1/4 bottles 12/08 Fever -better Facial Cellulitis - better Leukopenia - has Thalasemia - better Lactic acidosis - better Thrombocytopenia Afib Elevated T bili Plan Plan of Care Cont po Zyvox/Rocephin F/u lab and cults D/w Lactobacillus - may cause diarrhea D/w nursing JULIAN CUEVAS MD Dec 13, 2019 08:20
[2019-12-13] MEDS: OMEGA-3 FATTY ACIDS/FISH OIL 1,000 MG CAPSULE. PO SCH (08:25)
[2019-12-13] MEDS: LINEZOLID 600 MG TABLET PO SCH ×2 (08:25→21:10)
[2019-12-13] MEDS: FINASTERIDE 5 MG TABLET. PO SCH (08:27)
[2019-12-13] MEDS: DIGOXIN 125 MCG TABLET. PO SCH (08:28)
[2019-12-13] MEDS: METOPROLOL TART IMMED RELEASE 50 MG TABLET. PO SCH ×2 (08:29→21:10)
[2019-12-13] MEDS: NEOMYCIN/POLYMYXIN/HC OTIC SUSPENSION 10ML BOTTLE. AS SCH ×3 (08:30→21:11)
[2019-12-13] MEDS ORDERED: POTASSIUM CHLORIDE 20 MEQ TABLET.ER. PO ONE (10:45)
--- NOTE | 2019-12-13 10:49 | PDOC ---
PROGRESS NOTES Date of Service DATE: 12/13/19 TIME: 10:46 Subjective Subjective facial cellulitis better. 2 loose stools yesterday. potassium 3.4. inr 1.5. Objective Objective Vital Signs Date Time Temp Pulse Resp B/P (MAP) Pulse Ox O2 Delivery O2 Flow Rate FiO2 12/13/19 08:29 61 129/72 12/13/19 08:00 Room Air 12/13/19 07:00 97.3 18 96 97.3 12/12/19 08:00 2.0 Intake and Output 12/13/19 07:00 Intake Total 1760 ml Output Total 1100 ml Balance 660 ml Intake Oral 1760 ml Output Urine Total 1100 ml # Bowel Movements 3 Physical Exam Abdomen: Soft Heart: Regular rate, Normal S1, Normal S2 Extremities: No edema General: Alert HEENT: Atraumatic Lungs: Clear to auscultation Neuro: Normal speech Psych/Mental Status: Mental status NL Skin: Other (redness and swelling bilateral cheeks and left ear better) Assessment Assessment Problems1. Facial cellulitis, perhaps related to his mask from his CPAP. improving 2. Persistent atrial fibrillation. He is on Coumadin. 3. Coagulopathy.resolved 4. Obstructive sleep apnea, treated with CPAP. 5. Morbid obesity. 6. Thalassemia trait with chronic anemia. 7. Elevated BNP. 8. Sepsis related to the facial cellulitis since he had a fever earlier. 9. Permanent pacemaker. mild thrombocytopenia hypokalemia diarrhea Medical Problems: (1) Sepsis Status: Acute Plan Plan of Care continue rocephin and zyvox increase coumadin kcl today discussed with dr. ana luisa jimenez Comment Review of Relevant I have reviewed the following items chucky (where applicable) has been applied. Labs Laboratory Tests Test 12/12/19 04:15 12/13/19 02:55 White Blood Count 4.6 x10^3/uL (4.0-11.0) Red Blood Count 5.21 x10^6/uL (4.30-5.70) Hemoglobin 11.1 g/dL (13.0-17.5) Hematocrit 34.7 % (39.0-53.0) Mean Corpuscular Volume 67 fL (79-100) Mean Corpuscular Hemoglobin 21 pg (25-35) Mean Corpuscular Hemoglobin Concent 32 g/dL (31-37) Red Cell Distribution Width 15.7 % (11.5-14.5) Platelet Count 119 x10^3/uL (140-400) Neutrophils (%) (Auto) 67 % (31-73) Lymphocytes (%) (Auto) 22 % (24-48) Monocytes (%) (Auto) 8 % (0-9) Eosinophils (%) (Auto) 3 % (0-3) Basophils (%) (Auto) 0 % (0-3) Neutrophils # (Auto) 3.1 x10^3/uL (1.8-7.7) Lymphocytes # (Auto) 1.0 x10^3/uL (1.0-4.8) Monocytes # (Auto) 0.4 x10^3/uL (0.0-1.1) Eosinophils # (Auto) 0.1 x10^3/uL (0.0-0.7) Basophils # (Auto) 0.0 x10^3/uL (0.0-0.2) Prothrombin Time 18.8 SEC (11.7-14.0) 18.1 SEC (11.7-14.0) Prothromb Time International Ratio 1.6 (0.8-1.1) 1.5 (0.8-1.1) Sodium Level 141 mmol/L (136-145) 144 mmol/L (136-145) Potassium Level 3.4 mmol/L (3.5-5.1) 3.4 mmol/L (3.5-5.1) Chloride Level 104 mmol/L (98-107) 107 mmol/L (98-107) Carbon Dioxide Level 26 mmol/L (21-32) 29 mmol/L (21-32) Anion Gap 11 (6-14) 8 (6-14) Blood Urea Nitrogen 19 mg/dL (8-26) 14 mg/dL (8-26) Creatinine 1.2 mg/dL (0.7-1.3) 1.0 mg/dL (0.7-1.3) Estimated GFR (Cockcroft-Gault) 59.0 72.8 Glucose Level 151 mg/dL (70-99) 110 mg/dL (70-99) Calcium Level 8.1 mg/dL (8.5-10.1) 7.7 mg/dL (8.5-10.1) Magnesium Level 2.5 mg/dL (1.8-2.4) Laboratory Tests Test 12/13/19 02:55 Prothrombin Time 18.1 SEC (11.7-14.0) Prothromb Time International Ratio 1.5 (0.8-1.1) Sodium Level 144 mmol/L (136-145) Potassium Level 3.4 mmol/L (3.5-5.1) Chloride Level 107 mmol/L (98-107) Carbon Dioxide Level 29 mmol/L (21-32) Anion Gap 8 (6-14) Blood Urea Nitrogen 14 mg/dL (8-26) Creatinine 1.0 mg/dL (0.7-1.3) Estimated GFR (Cockcroft-Gault) 72.8 Glucose Level 110 mg/dL (70-99) Calcium Level 7.7 mg/dL (8.5-10.1) Microbiology 12/09/19 Blood Culture - Preliminary, Resulted NO GROWTH AFTER 3 DAYS 12/09/19 Urine Culture - Final, Complete Medications Current Medications Acetaminophen (Tylenol) 1,000 mg 1X ONCE PO Last administered on 12/09/19at 23:06; Start 12/09/19 at 22:45; Stop 12/09/19 at 22:46; Status DC Vancomycin HCl (Vanco Per Pharmacy) 1 each PRN DAILY PRN MC SEE COMMENTS Last administered on 12/10/19at 02:14; Start 12/09/19 at 23:30; Stop 12/10/19 at 08:56; Status DC Sodium Chloride 500 ml @ 500 mls/hr 1X ONCE IV Last administered on 12/09/19at 23:30; Start 12/09/19 at 23:30; Stop 12/10/19 at 00:29; Status DC Vancomycin HCl 2 gm/Sodium Chloride 500 ml @ 250 mls/hr 1X ONCE IV Last administered on 12/10/19at 01:05; Start 12/09/19 at 23:30; Stop 12/10/19 at 01:29; Status DC Sodium Chloride 1,000 ml @ 100 mls/hr Q10H IV Last administered on 12/10/19at 06:37; Start 12/10/19 at 00:15; Stop 12/10/19 at 09:46; Status DC Vancomycin HCl 2 gm/Sodium Chloride 500 ml @ 250 mls/hr Q12H IV ; Start 12/10/19 at 13:00; Stop 12/10/19 at 08:56; Status DC Vancomycin HCl (Vancomycin Trough Level) 1 each 1X ONCE MC ; Start 12/11/19 at 12:30; Stop 12/11/19 at 12:31; Status Cancel Linezolid (Zyvox) 600 mg BID PO Last administered on 12/13/19 08:25; Start 12/10/19 at 09:00 Ceftriaxone Sodium (Rocephin) 2 gm Q24H IVP Last administered on 12/12/19at 09:32; Start 12/10/19 at 10:00 Digoxin (Lanoxin) 125 mcg DAILY PO Last administered on 12/13/19 08:28; Start 12/10/19 at 10:00 Doxazosin Mesylate (Cardura) 2 mg DAILY PO Last administered on 12/11/19at 08:12; Start 12/10/19 at 10:00; Stop 12/11/19 at 12:46; Status DC Finasteride (Proscar) 5 mg DAILY PO Last administered on 12/13/19at 08:27; Start 12/10/19 at 10:00 Metoprolol Tartrate (Lopressor) 100 mg BID PO ; Start 12/10/19 at 10:00; Status Cancel Acetaminophen (Tylenol) 650 mg PRN Q6HRS PRN PO MILD PAIN / TEMP > 100.3'F Last administered on 12/11/19at 18:18; Start 12/10/19 at 09:45 Digoxin (Lanoxin) 125 mcg DAILY PO ; Start 12/10/19 at 10:00; Status Cancel Finasteride (Proscar) 5 mg DAILY PO ; Start 12/10/19 at 10:00; Status Cancel Non-Formulary Medication (Doxazosin Mesylate ) 1 tab DAILY PO ; Start 12/11/19 at 09:00; Status UNV Non-Formulary Medication (Garlic ) 1,000 mg BID PO ; Start 12/10/19 at 21:00; Status UNV Non-Formulary Medication (Metoprolol Tartrate ) 150 mg BID PO ; Start 12/10/19 at 21:00; Status UNV Fish Oil (Fish Oil) 1,000 mg DAILY PO Last administered on 12/13/19at 08:25; Start 12/10/19 at 10:00 Non-Formulary Medication (Ubidecarenone (Co Q-10)) 200 mg BID PO ; Start 12/10/19 at 21:00; Status UNV Metoprolol Tartrate (Lopressor) 100 mg BID PO Last administered on 12/10/19at 10:18; Start 12/10/19 at 10:00; Stop 12/10/19 at 14:03; Status DC Lactobacillus Rhamnosus (Culturelle) 1 cap BID PO Last administered on 12/11/19at 20:51; Start 12/10/19 at 21:00; Stop 12/12/19 at 07:30; Status DC Metoprolol Tartrate (Lopressor) 50 mg BID PO Last administered on 12/13/19at 08:29; Start 12/10/19 at 21:00 Metoprolol Tartrate (Lopressor Vial) 5 mg PRN Q6HRS PRN IVP HYPERTENSION; Start 12/10/19 at 14:15; Stop 12/12/19 at 10:33; Status DC Warfarin Sodium (Coumadin) 4 mg DAILY16 PO Last administered on 12/11/19at 16:29; Start 12/11/19 at 16:00; Stop 12/12/19 at 10:33; Status DC Warfarin Sodium (Coumadin Per Physician) 1 each PRN DAILY PRN MC SEE COMMENTS Last administered on 12/12/19at 10:43; Start 12/11/19 at 07:30 Daptomycin 625 mg/ Sodium Chloride 50 ml @ 100 mls/hr ONCE ONCE IV Last ad ministered on 12/11/19at 09:46; Start 12/11/19 at 09:00; Stop 12/11/19 at 09:29; Status DC Magnesium Sulfate 50 ml @ 25 mls/hr 1X ONCE IV ; Start 12/11/19 at 13:00; Stop 12/11/19 at 12:54; Status DC Daptomycin 625 mg/ Sodium Chloride 50 ml @ 100 mls/hr ONCE ONCE IV Last administered on 12/12/19at 08:39; Start 12/12/19 at 08:00; Stop 12/12/19 at 08:29; Status DC Neomycin/ Polymyxin/ Hydrocortisone (Cortisporin Otic) 4 drop TID Last administered on 12/13/19at 08:30; Start 12/12/19 at 09:00 Warfarin Sodium (Coumadin) 4.5 mg DAILY16 PO ; Start 12/12/19 at 16:00; Status UNV Potassium Chloride (Klor-Con) 40 meq 1X ONCE PO Last administered on 12/12/19at 10:44; Start 12/12/19 at 10:30; Stop 12/12/19 at 10:36; Status DC Warfarin Sodium (Coumadin) 2 mg DAILY16 PO Last administered on 12/12/19at 16:09; Start 12/12/19 at 16:00 Warfarin Sodium (Coumadin) 2.5 mg DAILY16 PO Last administered on 12/12/19at 16:09; Start 12/12/19 at 16:00 Active Scripts Active Reported [place] 3 Fish Oil Softgel ([place]-3 Fatty Acids/Fish Oil) 1 Each Capsule.dr 1 Each PO DAILY Garlic 1,000 Mg Capsule 1,000 Mg PO BID Co Q-10 (Ubidecarenone) 200 Mg Capsule 200 Mg PO BID Warfarin Sodium 4 Mg Tablet 4.5 Mg PO DAILY Finasteride 5 Mg Tablet 5 Mg PO DAILY Doxazosin Mesylate 2 Mg Tablet 1 Tab PO DAILY Digoxin 125 Mcg Tablet 125 Mcg PO DAILY Metoprolol Tartrate 100 Mg Tablet 150 Mg PO BID Vitals/I & O Vital Sign - Last 24 Hours 12/12/19 12/12/19 12/12/19 12/12/19 11:22 15:07 19:27 19:30 Temp 97.7 97.4 97.7 97.7 97.4 97.7 Pulse 58 70 70 Resp 18 20 18 B/P (MAP) 93/56 (68) 96/59 (71) 124/71 (88) Pulse Ox 96 96 94 O2 Delivery Room Air Room Air Room Air Room Air 12/12/19 12/12/19 12/13/19 12/13/19 20:42 22:38 03:12 07:00 Temp 98.1 98.7 97.3 98.1 98.7 97.3 Pulse 70 66 85 61 Resp 18 18 18 B/P (MAP) 124/71 127/55 (79) 117/69 (85) 129/72 (91) Pulse Ox 96 99 96 O2 Delivery Room Air Room Air Room Air 12/13/19 12/13/19 12/13/19 08:00 08:28 08:29 Pulse 61 61 B/P (MAP) 129/72 129/72 O2 Delivery Room Air Intake and Output 12/12/19 12/12/19 12/13/19 15:00 23:00 07:00 Intake Total 490 ml 1070 ml 200 ml Output Total 300 ml 800 ml Balance 190 ml 270 ml 200 ml SANDRA GARDINER MD Dec 13, 2019 10:49
[2019-12-13 11:00] VITALS: BP 96/54
[2019-12-13] MEDS: cefTRIAXone IV Push 2 GM VIAL. IVP SCH (11:02)
--- NOTE | 2019-12-13 11:55 | PDOC ---
CJ HIRSCH CRISIS CLINICIAN 12/13/19 1155: CARDIO Progress Notes Date and Time Date of Service 12/13/19 Time of Evaluation 1145 Subjective Subjective: No Chest Pain, No shortness of breath, No Palpitations, Other (facial swelling/reddness improved ) Vitals Vitals Vital Signs Date Time Temp Pulse Resp B/P (MAP) Pulse Ox O2 Delivery O2 Flow Rate FiO2 12/13/19 08:29 61 129/72 12/13/19 08:00 Room Air 12/13/19 07:00 97.3 18 96 97.3 12/12/19 08:00 2.0 Weight Weight [ ] Input and Output Intake and Output Intake and Output 12/13/19 07:00 Intake Total 1760 ml Output Total 1100 ml Balance 660 ml Intake Oral 1760 ml Output Urine Total 1100 ml # Bowel Movements 3 Laboratory Labs Laboratory Tests Test 12/13/19 02:55 Prothrombin Time 18.1 SEC (11.7-14.0) Prothromb Time International Ratio 1.5 (0.8-1.1) Sodium Level 144 mmol/L (136-145) Potassium Level 3.4 mmol/L (3.5-5.1) Chloride Level 107 mmol/L (98-107) Carbon Dioxide Level 29 mmol/L (21-32) Anion Gap 8 (6-14) Blood Urea Nitrogen 14 mg/dL (8-26) Creatinine 1.0 mg/dL (0.7-1.3) Estimated GFR (Cockcroft-Gault) 72.8 Glucose Level 110 mg/dL (70-99) Calcium Level 7.7 mg/dL (8.5-10.1) Microbiology Micro Microbiology 12/09/19 Blood Culture - Preliminary, Resulted NO GROWTH AFTER 3 DAYS 12/09/19 Urine Culture - Final, Complete Physical Exam HEENT: Neck Supple W Full Motion Chest: Symmetric LUNGS: Clear to Auscultation Heart: S1S2, irregularly irregular Abdomen: Soft N/T Extremities: No Edema Neurology: alert, oriented, follow commands Assessment Assessment 1. Sepsis/fever/facial cellulitis; improved 2. Chronic AFIB, with RVR, rate now well-controlled Chronic OAC with warfarin 3. Elevated pro NT BNP: suspect due to above culprits. No overt CHF 4. HTN: controlled 5. Anemia, thrombocytopenia 6. SSS/tachybradycardia syndrome s/p PPM 7. KATE: CPAP compliant Recommendations Continue current medications including metoprolol and Dig for rate control Coumadin for stroke prophylaxis. Antibiotics per ID team. Follow up with primary gameplay engineer, Dr. Sotelo. Supportive care Justicifation of Admission Dx: Justifications for Admission: Justification of Admission Dx: Yes Sepsis: Infection GRISEL GUILLEN MD 12/13/19 1808: CARDIO Progress Notes Plan Plan Patient seen and examined. Agree with above nurse practitioner note. Continue supportive care. CJ HIRSCH APRN Dec 13, 2019 11:55 GRISEL GUILLEN MD Dec 13, 2019 18:08
--- NOTE | 2019-12-13 12:39 | NUR ---
SS following up with discharge planning. SS reviewed pt chart and discussed with pt RN. Pt is currently on room air and IV Rocephin. PT recommending home with home healthcare. Pt declining home healthcare at this time. Pt reported that he has a 4WW at home and a scooter for mobility. SS will continue to follow for discharge planning.
[2019-12-13 15:00] VITALS: BP 113/55
[2019-12-13] MEDS ORDERED: WARFARIN 5 MG TABLET. PO SCH (16:00)
[2019-12-13 19:00] VITALS: BP 120/68
[2019-12-13] MEDS: LACTOBACILLUS RHAMNOSUS GG 1 CAPSULE. PO SCH (21:10)
[2019-12-13 22:58] VITALS: BP 121/46
[2019-12-14 02:34] VITALS: BP 135/73
[2019-12-14 05:18] LABS: BASO % 0 % (0-3); EOS # 0.1 x10^3/uL (0.0-0.7); EOS % 3 % (0-3); HEMATOCRIT 30.4 % (39.0-53.0); HEMOGLOBIN 9.8 g/dL (13.0-17.5); LYMPH # 0.7 x10^3/uL (1.0-4.8); LYMPH % 26 % (24-48); MEAN CORPUSCULAR HEMOGLOBIN 21 pg (25-35); MEAN CORPUSCULAR HGB CONC 32 g/dL (31-37); MEAN CORPUSCULAR VOLUME 66 fL (79-100); MONO # 0.2 x10^3/uL (0.0-1.1); MONO % 8 % (0-9); NEUT # 1.6 x10^3/uL (1.8-7.7); NEUT % 62 % (31-73); PLATELET COUNT 124 x10^3/uL (140-400); RED BLOOD COUNT 4.62 x10^6/uL (4.30-5.70); RED CELL DISTRIBUTION WIDTH 15.3 % (11.5-14.5); WHITE BLOOD COUNT 2.6 x10^3/uL (4.0-11.0)
[2019-12-14 05:22] LABS: PROTHROMBIN TIME PATIENT 18.2 SEC (11.7-14.0)
[2019-12-14 05:39] LABS: CALCIUM 7.8 mg/dL (8.5-10.1); CREATININE 0.9 mg/dL (0.7-1.3); GFR 82.3; MAGNESIUM 2.5 mg/dL (1.8-2.4); POTASSIUM 3.8 mmol/L (3.5-5.1)
[2019-12-14 07:00] VITALS: BP 128/60
--- NOTE | 2019-12-14 08:27 | PDOC ---
Infectious Disease Note Subjective Subjective feeling much better, swelling of face is gone ROS ROS no n/v/d/ Vital Sign Vital Signs Vital Signs Date Time Temp Pulse Resp B/P (MAP) Pulse Ox O2 Delivery O2 Flow Rate FiO2 12/14/19 07:00 97.6 83 18 128/60 (82) 93 Room Air 97.6 12/14/19 02:34 4.0 Physical Exam PHYSICAL EXAM CONSTITUTIONAL: He is lying in bed. He is cooperative. He is in no acute distress. HEENT: Pupils are equal and reactive. He has normal conjunctivae. He does have improved facial swelling above his eyes and around his eyes and over the bridge of his nose. He has some mild erythema associated with it and some mild tenderness to palpation - better. Oral cavity: Oropharynx has dentures, otherwise clear. Left ear canal with cerum. and some pinna redness NECK: Supple, no JVD. LUNGS: Clear to auscultation. HEART: S1, S2. Pacemaker scars without complications. ABDOMEN: Obese, soft, nontender, nondistended with positive bowel sounds. EXTREMITIES: No clubbing, cyanosis or gross edema. SKIN: Warm to touch without generalized rash. NEUROLOGIC: He is nonfocal. PSYCHIATRIC: Affect is appropriate. Labs Lab Laboratory Tests Test 12/14/19 04:46 White Blood Count 2.6 x10^3/uL (4.0-11.0) Red Blood Count 4.62 x10^6/uL (4.30-5.70) Hemoglobin 9.8 g/dL (13.0-17.5) Hematocrit 30.4 % (39.0-53.0) Mean Corpuscular Volume 66 fL (79-100) Mean Corpuscular Hemoglobin 21 pg (25-35) Mean Corpuscular Hemoglobin Concent 32 g/dL (31-37) Red Cell Distribution Width 15.3 % (11.5-14.5) Platelet Count 124 x10^3/uL (140-400) Neutrophils (%) (Auto) 62 % (31-73) Lymphocytes (%) (Auto) 26 % (24-48) Monocytes (%) (Auto) 8 % (0-9) Eosinophils (%) (Auto) 3 % (0-3) Basophils (%) (Auto) 0 % (0-3) Neutrophils # (Auto) 1.6 x10^3/uL (1.8-7.7) Lymphocytes # (Auto) 0.7 x10^3/uL (1.0-4.8) Monocytes # (Auto) 0.2 x10^3/uL (0.0-1.1) Eosinophils # (Auto) 0.1 x10^3/uL (0.0-0.7) Basophils # (Auto) 0.0 x10^3/uL (0.0-0.2) Prothrombin Time 18.2 SEC (11.7-14.0) Prothromb Time International Ratio 1.5 (0.8-1.1) Sodium Level 143 mmol/L (136-145) Potassium Level 3.8 mmol/L (3.5-5.1) Chloride Level 108 mmol/L (98-107) Carbon Dioxide Level 29 mmol/L (21-32) Anion Gap 6 (6-14) Blood Urea Nitrogen 13 mg/dL (8-26) Creatinine 0.9 mg/dL (0.7-1.3) Estimated GFR (Cockcroft-Gault) 82.3 Glucose Level 114 mg/dL (70-99) Calcium Level 7.8 mg/dL (8.5-10.1) Magnesium Level 2.5 mg/dL (1.8-2.4) Micro BC 1/4 G + cocci coag neg staph Objective Assessment Bactermia 1/4 bottles 12/08 Fever -better Facial Cellulitis - better Leukopenia - has Thalasemia - better Lactic acidosis - better Thrombocytopenia Afib Elevated T bili Plan Plan of Care po cefdinir for 5 days F/u lab and cults D/w Lactobacillus - may cause diarrhea ok to d/c D/w nursing JULIAN CUEVAS MD Dec 14, 2019 08:27
[2019-12-14] MEDS: FINASTERIDE 5 MG TABLET. PO SCH (08:28)
[2019-12-14] MEDS: DIGOXIN 125 MCG TABLET. PO SCH (08:28)
[2019-12-14] MEDS: OMEGA-3 FATTY ACIDS/FISH OIL 1,000 MG CAPSULE. PO SCH (08:28)
[2019-12-14] MEDS: LACTOBACILLUS RHAMNOSUS GG 1 CAPSULE. PO SCH (08:28)
[2019-12-14] MEDS: METOPROLOL TART IMMED RELEASE 50 MG TABLET. PO SCH (08:28)
[2019-12-14] MEDS: NEOMYCIN/POLYMYXIN/HC OTIC SUSPENSION 10ML BOTTLE. AS SCH (08:30)
[2019-12-14] MEDS ORDERED: CEFDINIR 300 MG CAPSULE PO SCH (09:00)
--- NOTE | 2019-12-14 10:09 | PDOC ---
PROGRESS NOTES Date of Service DATE: 12/14/19 TIME: 10:07 Subjective Subjective feels better. cellulitis much improved. switched to cefdinir Objective Objective Vital Signs Date Time Temp Pulse Resp B/P (MAP) Pulse Ox O2 Delivery O2 Flow Rate FiO2 12/14/19 08:28 83 128/60 12/14/19 07:00 97.6 18 93 Room Air 97.6 12/14/19 02:34 4.0 Intake and Output 12/14/19 07:00 Intake Total 860 ml Balance 860 ml Intake Oral 860 ml # Voids 8 # Bowel Movements 1 Physical Exam Abdomen: Soft Heart: Regular rate, Normal S1, Normal S2 Extremities: No edema General: Alert HEENT: Atraumatic Lungs: Clear to auscultation Neuro: Normal speech Psych/Mental Status: Mental status NL Skin: Other (fading erythema face and left ear and pink now. no swelling) Assessment Assessment Problems1. Facial cellulitis, perhaps related to his mask from his CPAP. improving 2. Persistent atrial fibrillation. He is on Coumadin. 3. Coagulopathy.resolved 4. Obstructive sleep apnea, treated with CPAP. 5. Morbid obesity. 6. Thalassemia trait with chronic anemia. 7. Elevated BNP. 8. Sepsis related to the facial cellulitis since he had a fever earlier. 9. Permanent pacemaker. mild thrombocytopenia Medical Problems: (1) Sepsis Status: Acute Plan Plan of Care switch to cefdinir dismiss today Comment Review of Relevant I have reviewed the following items chucky (where applicable) has been applied. Labs Laboratory Tests Test 12/12/19 17:00 12/13/19 02:55 12/14/19 04:46 Clostridium difficile Toxin (PCR) Negative (NEGATIVE) Prothrombin Time 18.1 SEC (11.7-14.0) 18.2 SEC (11.7-14.0) Prothromb Time International Ratio 1.5 (0.8-1.1) 1.5 (0.8-1.1) Sodium Level 144 mmol/L (136-145) 143 mmol/L (136-145) Potassium Level 3.4 mmol/L (3.5-5.1) 3.8 mmol/L (3.5-5.1) Chloride Level 107 mmol/L (98-107) 108 mmol/L (98-107) Carbon Dioxide Level 29 mmol/L (21-32) 29 mmol/L (21-32) Anion Gap 8 (6-14) 6 (6-14) Blood Urea Nitrogen 14 mg/dL (8-26) 13 mg/dL (8-26) Creatinine 1.0 mg/dL (0.7-1.3) 0.9 mg/dL (0.7-1.3) Estimated GFR (Cockcroft-Gault) 72.8 82.3 Glucose Level 110 mg/dL (70-99) 114 mg/dL (70-99) Calcium Level 7.7 mg/dL (8.5-10.1) 7.8 mg/dL (8.5-10.1) White Blood Count 2.6 x10^3/uL (4.0-11.0) Red Blood Count 4.62 x10^6/uL (4.30-5.70) Hemoglobin 9.8 g/dL (13.0-17.5) Hematocrit 30.4 % (39.0-53.0) Mean Corpuscular Volume 66 fL (79-100) Mean Corpuscular Hemoglobin 21 pg (25-35) Mean Corpuscular Hemoglobin Concent 32 g/dL (31-37) Red Cell Distribution Width 15.3 % (11.5-14.5) Platelet Count 124 x10^3/uL (140-400) Neutrophils (%) (Auto) 62 % (31-73) Lymphocytes (%) (Auto) 26 % (24-48) Monocytes (%) (Auto) 8 % (0-9) Eosinophils (%) (Auto) 3 % (0-3) Basophils (%) (Auto) 0 % (0-3) Neutrophils # (Auto) 1.6 x10^3/uL (1.8-7.7) Lymphocytes # (Auto) 0.7 x10^3/uL (1.0-4.8) Monocytes # (Auto) 0.2 x10^3/uL (0.0-1.1) Eosinophils # (Auto) 0.1 x10^3/uL (0.0-0.7) Basophils # (Auto) 0.0 x10^3/uL (0.0-0.2) Magnesium Level 2.5 mg/dL (1.8-2.4) Laboratory Tests Test 12/14/19 04:46 White Blood Count 2.6 x10^3/uL (4.0-11.0) Red Blood Count 4.62 x10^6/uL (4.30-5.70) Hemoglobin 9.8 g/dL (13.0-17.5) Hematocrit 30.4 % (39.0-53.0) Mean Corpuscular Volume 66 fL (79-100) Mean Corpuscular Hemoglobin 21 pg (25-35) Mean Corpuscular Hemoglobin Concent 32 g/dL (31-37) Red Cell Distribution Width 15.3 % (11.5-14.5) Platelet Count 124 x10^3/uL (140-400) Neutrophils (%) (Auto) 62 % (31-73) Lymphocytes (%) (Auto) 26 % (24-48) Monocytes (%) (Auto) 8 % (0-9) Eosinophils (%) (Auto) 3 % (0-3) Basophils (%) (Auto) 0 % (0-3) Neutrophils # (Auto) 1.6 x10^3/uL (1.8-7.7) Lymphocytes # (Auto) 0.7 x10^3/uL (1.0-4.8) Monocytes # (Auto) 0.2 x10^3/uL (0.0-1.1) Eosinophils # (Auto) 0.1 x10^3/uL (0.0-0.7) Basophils # (Auto) 0.0 x10^3/uL (0.0-0.2) Prothrombin Time 18.2 SEC (11.7-14.0) Prothromb Time International Ratio 1.5 (0.8-1.1) Sodium Level 143 mmol/L (136-145) Potassium Level 3.8 mmol/L (3.5-5.1) Chloride Level 108 mmol/L (98-107) Carbon Dioxide Level 29 mmol/L (21-32) Anion Gap 6 (6-14) Blood Urea Nitrogen 13 mg/dL (8-26) Creatinine 0.9 mg/dL (0.7-1.3) Estimated GFR (Cockcroft-Gault) 82.3 Glucose Level 114 mg/dL (70-99) Calcium Level 7.8 mg/dL (8.5-10.1) Magnesium Level 2.5 mg/dL (1.8-2.4) Microbiology 12/09/19 Blood Culture - Final, Complete 12/09/19 Urine Culture - Final, Complete Medications Current Medications Acetaminophen (Tylenol) 1,000 mg 1X ONCE PO Last administered on 12/09/19at 23:06; Start 12/09/19 at 22:45; Stop 12/09/19 at 22:46; Status DC Vancomycin HCl (Vanco Per Pharmacy) 1 each PRN DAILY PRN MC SEE COMMENTS Last administered on 12/10/19at 02:14; Start 12/09/19 at 23:30; Stop 12/10/19 at 08:56; Status DC Sodium Chloride 500 ml @ 500 mls/hr 1X ONCE IV Last administered on 12/09/19at 23:30; Start 12/09/19 at 23:30; Stop 12/10/19 at 00:29; Status DC Vancomycin HCl 2 gm/Sodium Chloride 500 ml @ 250 mls/hr 1X ONCE IV Last administered on 12/10/19at 01:05; Start 12/09/19 at 23:30; Stop 12/10/19 at 01:29; Status DC Sodium Chloride 1,000 ml @ 100 mls/hr Q10H IV Last administered on 12/10/19at 06:37; Start 12/10/19 at 00:15; Stop 12/10/19 at 09:46; Status DC Vancomycin HCl 2 gm/Sodium Chloride 500 ml @ 250 mls/hr Q12H IV ; Start 12/10/19 at 13:00; Stop 12/10/19 at 08:56; Status DC Vancomycin HCl (Vancomycin Trough Level) 1 each 1X ONCE MC ; Start 12/11/19 at 12:30; Stop 12/11/19 at 12:31; Status Cancel Linezolid (Zyvox) 600 mg BID PO Last administered on 12/13/19at 21:10; Start 12/10/19 at 09:00; Stop 12/14/19 at 08:20; Status DC Ceftriaxone Sodium (Rocephin) 2 gm Q24H IVP Last administered on 12/13/19at 11:02; Start 12/10/19 at 10:00; Stop 12/14/19 at 08:20; Status DC Digoxin (Lanoxin) 125 mcg DAILY PO Last administered on 12/14/19at 08:28; Start 12/10/19 at 10:00 Doxazosin Mesylate (Cardura) 2 mg DAILY PO Last administered on 12/11/19at 08:12; Start 12/10/19 at 10:00; Stop 12/11/19 at 12:46; Status DC Finasteride (Proscar) 5 mg DAILY PO Last administered on 12/14/19at 08:28; Start 12/10/19 at 10:00 Metoprolol Tartrate (Lopressor) 100 mg BID PO ; Start 12/10/19 at 10:00; Status Cancel Acetaminophen (Tylenol) 650 mg PRN Q6HRS PRN PO MILD PAIN / TEMP > 100.3'F Last administered on 12/11/19at 18:18; Start 12/10/19 at 09:45 Digoxin (Lanoxin) 125 mcg DAILY PO ; Start 12/10/19 at 10:00; Status Cancel Finasteride (Proscar) 5 mg DAILY PO ; Start 12/10/19 at 10:00; Status Cancel Non-Formulary Medication (Doxazosin Mesylate ) 1 tab DAILY PO ; Start 12/11/19 at 09:00; Status UNV Non-Formulary Medication (Garlic ) 1,000 mg BID PO ; Start 12/10/19 at 21:00; Status UNV Non-Formulary Medication (Metoprolol Tartrate ) 150 mg BID PO ; Start 12/10/19 at 21:00; Status UNV Fish Oil (Fish Oil) 1,000 mg DAILY PO Last administered on 12/14/19at 08:28; Start 12/10/19 at 10:00 Non-Formulary Medication (Ubidecarenone (Co Q-10)) 200 mg BID PO ; Start 12/10/19 at 21:00; Status UNV Metoprolol Tartrate (Lopressor) 100 mg BID PO Last administered on 12/10/19at 10:18; Start 12/10/19 at 10:00; Stop 12/10/19 at 14:03; Status DC Lactobacillus Rhamnosus (Culturelle) 1 cap BID PO Last administered on 12/11/19at 20:51; Start 12/10/19 at 21:00; Stop 12/12/19 at 07:30; Status DC Metoprolol Tartrate (Lopressor) 50 mg BID PO Last administered on 12/14/19at 08:28; Start 12/10/19 at 21:00 Metoprolol Tartrate (Lopressor Vial) 5 mg PRN Q6HRS PRN IVP HYPERTENSION; Start 12/10/19 at 14:15; Stop 12/12/19 at 10:33; Status DC Warfarin Sodium (Coumadin) 4 mg DAILY16 PO Last administered on 12/11/19at 16:29; Start 12/11/19 at 16:00; Stop 12/12/19 at 10:33; Status DC Warfarin Sodium (Coumadin Per Physician) 1 each PRN DAILY PRN MC SEE COMMENTS Last administered on 12/12/19at 10:43; Start 12/11/19 at 07:30 Daptomycin 625 mg/ Sodium Chloride 50 ml @ 100 mls/hr ONCE ONCE IV Last administered on 12/11/19at 09:46; Start 12/11/19 at 09:00; Stop 12/11/19 at 09:29; Status DC Magnesium Sulfate 50 ml @ 25 mls/hr 1X ONCE IV ; Start 12/11/19 at 13:00; Stop 12/11/19 at 12:54; Status DC Daptomycin 625 mg/ Sodium Chloride 50 ml @ 100 mls/hr ONCE ONCE IV Last administered on 12/12/19at 08:39; Start 12/12/19 at 08:00; Stop 12/12/19 at 08:29; Status DC Neomycin/ Polymyxin/ Hydrocortisone (Cortisporin Otic) 4 drop TID Last administered on 12/14/19at 08:30; Start 12/12/19 at 09:00 Warfarin Sodium (Coumadin) 4.5 mg DAILY16 PO ; Start 12/12/19 at 16:00; Status UNV Potassium Chloride (Klor-Con) 40 meq 1X ONCE PO Last administered on 12/12/19at 10:44; Start 12/12/19 at 10:30; Stop 12/12/19 at 10:36; Status DC Warfarin Sodium (Coumadin) 2 mg DAILY16 PO Last administered on 12/12/19at 16:09 ; Start 12/12/19 at 16:00; Stop 12/13/19 at 10:45; Status DC Warfarin Sodium (Coumadin) 2.5 mg DAILY16 PO Last administered on 12/12/19at 16:09; Start 12/12/19 at 16:00; Stop 12/13/19 at 10:46; Status DC Warfarin Sodium (Coumadin) 5 mg DAILY16 PO Last administered on 12/13/19at 16:06; Start 12/13/19 at 16:00 Potassium Chloride (Klor-Con) 20 meq 1X ONCE PO Last administered on 12/13/19at 11:02; Start 12/13/19 at 10:45; Stop 12/13/19 at 10:49; Status DC Lactobacillus Rhamnosus (Culturelle) 1 cap BID PO Last administered on 12/14/19 08:28; Start 12/13/19 at 21:00 Cefdinir (Omnicef) 300 mg BID PO Last administered on 12/14/19at 08:28; Start 12/14/19 at 09:00 Active Scripts Active Reported Lignite 3 Fish Oil Softgel (Lignite-3 Fatty Acids/Fish Oil) 1 Each Capsule.dr 1 Each PO DAILY Garlic 1,000 Mg Capsule 1,000 Mg PO BID Co Q-10 (Ubidecarenone) 200 Mg Capsule 200 Mg PO BID Warfarin Sodium 4 Mg Tablet 4.5 Mg PO DAILY Finasteride 5 Mg Tablet 5 Mg PO DAILY Doxazosin Mesylate 2 Mg Tablet 1 Tab PO DAILY Digoxin 125 Mcg Tablet 125 Mcg PO DAILY Metoprolol Tartrate 100 Mg Tablet 150 Mg PO BID Vitals/I & O Vital Sign - Last 24 Hours 12/13/19 12/13/19 12/13/19 12/13/19 11:00 15:00 19:00 19:15 Temp 98.0 97.9 98.3 98.0 97.9 98.3 Pulse 60 81 80 Resp 16 18 18 B/P (MAP) 96/54 (68) 113/55 (74) 120/68 (85) Pulse Ox 96 97 93 O2 Delivery Room Air Room Air Room Air Room Air 12/13/19 12/13/19 12/14/19 12/14/19 21:10 22:58 02:34 07:00 Temp 98.0 98.9 97.6 98.0 98.9 97.6 Pulse 80 69 63 83 Resp 16 18 18 B/P (MAP) 120/68 121/46 (71) 135/73 (93) 128/60 (82) Pulse Ox 96 100 93 O2 Delivery Room Air Nasal Cannula Room Air O2 Flow Rate 4.0 12/14/19 12/14/19 08:28 08:28 Pulse 83 83 B/P (MAP) 128/60 128/60 Intake and Output 12/13/19 12/13/19 12/14/19 15:00 23:00 07:00 Intake Total 180 ml 480 ml 200 ml Balance 180 ml 480 ml 200 ml SANDRA GARDINER MD Dec 14, 2019 10:09
[2019-12-14] MEDS ORDERED: WARF5TAB9 PO (10:12)
[2019-12-14] MEDS ORDERED: METO50TA6 PO (10:12)
[2019-12-14] MEDS ORDERED: CEFD300C PO (10:12)
--- NOTE | 2019-12-14 10:13 | DISCH ---
DISCHARGE INSTRUCTIONS Condition on Discharge Condition on Discharge: Stable Activity After Discharge Activity Instructions for Disc: Resume previous activity Diet after Discharge Diet after Discharge: Regular Contacting the DRLizzie after DC Call your doctor for: If your condition worsens Follow-Up Follow up with: dr. gardiner next week Warfarin Follow-Up Warfarin Follow UP: 12/15 in my office SANDRA GARDINER MD Dec 14, 2019 10:13
--- NOTE | 2019-12-14 10:21 | PDOC ---
Provider Note Provider Note discharge summary dictated # [id number] SANDRA GARDINER MD Dec 14, 2019 10:21
[2019-12-14 11:00] VITALS: BP 108/58
--- NOTE | 2019-12-14 11:07 | DS ---
DATE OF DISCHARGE: 12/14/2019 CONSULTANTS: 1. Arnold Hatch MD 2. David Dickens MD 3. Nate Membreno MD FINAL DIAGNOSES: 1. Cellulitis of the face. 2. Persistent atrial fibrillation, on Coumadin. 3. Coagulopathy, which resolved. 4. Obstructive sleep apnea, treated with CPAP. 5. Morbid obesity. 6. Thalassemia trait with chronic anemia. 7. Sepsis related to the facial cellulitis. 8. Permanent pacemaker. 9. Some mild thrombocytopenia. 10. Leukopenia. HOSPITAL COURSE: The patient is a 74-year-old white male with a history of persistent atrial fibrillation, on Coumadin, who has obstructive sleep apnea, treated with CPAP and morbid obesity, thalassemia trait with chronic anemia, who has a permanent pacemaker, who noted the onset of facial redness and swelling prior to admission. He went to the [facility] Emergency Room and was diagnosed with facial cellulitis and sepsis. His blood cultures were negative. Urine culture was also negative as he had pyuria. One of his blood cultures was positive, 04/24 with Staphylococcus epidermidis thought to be a contaminant. He was seen by Dr. Arnold Hatch for Infectious Disease and Dr. Membreno for Cardiology. He had a coagulopathy and his Coumadin was held and his INR is 1.5 today and was started on higher dose of 5 mg every day. Checks his protime and INR weekly in my office. In addition, his facial cellulitis and swelling improved. He was treated with IV antibiotics. He was treated with IV Rocephin and Zyvox and then eventually was switched to cefdinir today on the day of dismissal. Facial swelling and redness improved dramatically. His INR today is 1.5. An echocardiogram showed a left ventricular ejection fraction 55-60%. His labs today; his white count was 2.6, hemoglobin 9.8, platelet count 124,000, 62 polys and 26 lymphocytes. He is afebrile. INR was 1.5 today. He therefore will be dismissed to home, was told to make an appointment to see Dr. Rushing in the office next week and get a protime and INR done in his office on 12/15. He will be dismissed on cefdinir 300 mg b.i.d. for 5 days, metoprolol tartrate 50 mg b.i.d., Coumadin 5 mg every day, digoxin 125 mcg every day, finasteride 5 mg every day, garlic 1 mg capsule p.o. daily, fish oil 1 g daily, Coenzyme Q10 200 mg b.i.d. His doxazosin was stopped as he had some low blood pressure there for a while. We will make an appointment to see Dr. Rushing in the office as mentioned next week. Coumadin will be 5 mg every day. SANDRA RUSHING MD DR: GRICEL/stefano JOB#: [id number] / [id number]
--- NOTE | 2019-12-14 12:00 | NUR ---
Discharge Note: [place] [address] [place] Discharge instructions and discharge home medications reviewed with Patient and a copy given. All questions have been answered and understanding verbalized. The following instructions and handouts were given: discharge instructions, metoprolol info, warfarin info, cefdinir info. Discontinued lines and drains: Peripheral IV intact. Patient discharged to Home or Self Care with Spouse via Wheelchair at 1200.
== END 2019-12-14 11:58 | disposition home or self-care (01) | DRG 872 ==
LOC: ER 19:27 → 2 NORTH 22:45
PROVIDERS: ADMIT Internal Medicine; ATTEND Internal Medicine
DX: A41.9 Sepsis, unspecified organism (principal); L03.211 Cellulitis of face; D68.9 Coagulation defect, unspecified; I48.19 Other persistent atrial fibrillation; D50.9 Iron deficiency anemia, unspecified; D56.3 Thalassemia minor; D69.6 Thrombocytopenia, unspecified; E66.01 Morbid (severe) obesity due to excess calories; G89.29 Other chronic pain; K21.9 Gastro-esophageal reflux disease without esophagitis; M19.90 Unspecified osteoarthritis, unspecified site; E83.42 Hypomagnesemia; E87.6 Hypokalemia; G47.33 Obstructive sleep apnea (adult) (pediatric); I10 Essential (primary) hypertension; I49.5 Sick sinus syndrome; J32.9 Chronic sinusitis, unspecified; J44.9 Chronic obstructive pulmonary disease, unspecified; K59.00 Constipation, unspecified; Z79.01 Long term (current) use of anticoagulants; Z68.38 Body mass index [BMI] 38.0-38.9, adult; Z79.899 Other long term (current) drug therapy; Z80.3 Family history of malignant neoplasm of breast; Z82.3 Family history of stroke; Z87.891 Personal history of nicotine dependence; Z95.0 Presence of cardiac pacemaker; Z98.41 Cataract extraction status, right eye; Z98.42 Cataract extraction status, left eye
CPT/HCPCS: 36415; 70486; 71045; 80048; 80053; 80076; 80162; 81001; 82553; 82565; 83605; 83690; 83735; 83880; 84443; 84484; 85025; 85610; 85730; 87040; 87077; 87086; 87205; 87493; 93005; 93306; 99285; J0696; J0878; J3370; J7030; J7040; 97110-GP; 97530-GO; 97530-GP; 97535-GO; G0378